=== PATIENT | female | born 1965 | race Caucasian/White ===

== ENCOUNTER 2024-11-05 14:14 | Inpatient (IN) | payer OTHER ==
[~2024-11-05] VITALS: Ht 165.1 cm; Wt 93.4 kg
[2024-11-05 14:56] LABS: CALCIUM 8.9 mg/dL (8.5-10.1); CARBON DIOXIDE 25 mmol/L (21-32); CHLORIDE 88 mmol/L (98-107); CREATININE 1.9 mg/dL (0.6-1.3); GLUCOSE 147 mg/dL (74-106); SODIUM SERUM 133 mmol/L (136-145); UREA NITROGEN, BLOOD 45 mg/dL (7-18)
[2024-11-05] MEDS ORDERED: PANTOPRAZOLE SODIUM 40 MG VIAL ONE (14:56)
[2024-11-05 14:57] LABS: AMMONIA < 10 umol/L (11-32)
[2024-11-05 14:58] LABS: BASOPHILS # (AUTO) 0.1 K/UL (0.0-0.2); LYMPHOCYTES # (AUTO) 0.4 K/uL (0.8-4.8); MONOCYTES # (AUTO) 0.5 K/uL (0.1-1.30); NEUTROPHILS % (AUTO) 88.7 % (38.5-71.5)
[2024-11-05] MEDS: PANTOPRAZOLE SODIUM IV 80 MG in IV DEXTROSE 5% 100 ML IV ONE (14:58)
[2024-11-05] MEDS: IV NORMAL SALINE 1000 ML BAG IV ONE (14:58)
[2024-11-05 15:00] LABS: BASOPHILS % (AUTO) 0.7 % (0.0-2.0); LYMPHOCYTES % (AUTO) 4.5 % (20.5-51.5); MEAN CORPUSCULAR HEMOGLOBIN 34.4 uug (24.7-32.8); MEAN CORPUSCULAR HGB CONC 34 g/dL (32.3-35.6); MEAN CORPUSCULAR VOLUME 100.1 fL (75.5-95.3); MONOCYTES % (AUTO) 6.1 % (0.0-11.0); NEUTROPHILS # (AUTO) 7.4 K/uL (1.8-8.9); PLATELET COUNT (AUTO) 149 K/uL (179-408); RED CELL DISTRIBUTION WIDTH 37.5 % (12.3-17.7); WHITE BLOOD COUNT (AUTO) 8.4 K/uL (3.8-11.8)
[2024-11-05] MEDS ORDERED: ONDANSETRON 4 MG/2 ML VIAL ONE (15:03)
[2024-11-05 15:06] LABS: ALANINE AMINOTRANSFERASE 38 U/L (14-59); ALBUMIN 3.3 g/dL (3.4-5.0); ALKALINE PHOSPHATASE 225 U/L (50-136); ASPARTATE AMINOTRANSFERASE 93 U/L (15-37); BILIRUBIN,DIRECT 5.8 mg/dL (0.0-0.2); BILIRUBIN,TOTAL 9.3 mg/dL (0.2-1.0); TOTAL PROTEIN, SERUM 6.6 g/dL (6.4-8.2)
[2024-11-05] MEDS: ONDANSETRON 4 MG/2 ML VIAL IV ONE (15:06)
[2024-11-05 15:07] LABS: DIFFERENTIAL COMMENT 1; RED BLOOD CELL COUNT(AUTO) 1.67 MIL/uL (3.63-4.92)
[2024-11-05 15:08] LABS: HEMATOCRIT 16.8 % (31.2-41.9); HEMOGLOBIN 5.8 g/dL (10.9-14.3)
[2024-11-05 15:09] LABS: LACTIC ACID 9.1 mmol/L (0.4-2.0)
[2024-11-05] MEDS ORDERED: POTASSIUM CHLORIDE 200 ML ONE (15:32)
[2024-11-05] MEDS ORDERED: PHYTONADIONE 10 MG/1 ML AMPUL ONE (15:32)
[2024-11-05] MEDS ORDERED: LORAZEPAM 2 MG/1 ML VIAL ONE (15:33)
[2024-11-05 15:38] LABS: BAND % (MANUAL) 1 % (0-10); LYMPHOCYTES % (MANUAL) 5 % (20-40); MONOCYTES % (MANUAL) 4 % (2-10); NEUTROPHILS % (MANUAL) 90 % (42-75); PLATELET ESTIMATE SLIGHT DECREASED
[2024-11-05 15:39] LABS: ANISOCYTOSIS 2+; OVALOCYTES 1+
[2024-11-05 16:00] LABS: MAGNESIUM 1.4 mg/dL (1.8-2.4)
[2024-11-05] MEDS: OCTREOTIDE ACETATE INJ 500 MCG in IV DEXTROSE 5% 100 ML IV ONE (16:00)
[2024-11-05] MEDS: OCTREOTIDE ACETATE 50 MCG/1 ML ML IV ONE (16:00)
[2024-11-05] MEDS: LORAZEPAM 2 MG/1 ML VIAL IV ONE (16:01)
[2024-11-05] MEDS: POTASSIUM CHLORIDE 50 ML IV SCH (16:02)
[2024-11-05] MEDS: PHYTONADIONE 10 MG/1 ML AMPUL SQ ONE (16:02)
[2024-11-05] MEDS ORDERED: MAGNESIUM SULFATE/D5W 100 ML ONE (16:22)
[2024-11-05] MEDS ORDERED: OCTREOTIDE ACETATE 50 MCG/1 ML ML ONE (16:23)
[2024-11-05 16:25] LABS: *BILIRUBIN,URIN 1+ (NEGATIVE); *BLOOD, URINE NEGATIVE (NEGATIVE); *CLARITY,URINE CLEAR (CLEAR); *KETONES,URINE 1+ (NEGATIVE); *PROTEIN,URINE NEGATIVE (NEGATIVE); LEUKOCYTE ESTERASE ,URINE NEGATIVE (NEGATIVE); NITRITE, URINE NEGATIVE (NEGATIVE); UGLUCOSE NEGATIVE (NEGATIVE)
[2024-11-05 16:34] LABS: *COLOR,URINE DARK YELLOW (YELLOW)
[2024-11-05 16:55] LABS: BACTERIA,URINE MANY /HPF (NONE SEEN); RBC,URINE NONE SEEN /HPF (0-3); SQUAMOUS EPITHELIAL CELL,UR FEW /HPF (NONE SEEN); WBC,URINE 0-3 /HPF (0-3)
[2024-11-05] MEDS: MAGNESIUM SULFATE/D5W 100 ML IV SCH (17:05)
[2024-11-05] MEDS ORDERED: diphenhydrAMINE 50 MG/1 ML VIAL IV PRN (17:30)
[2024-11-05] MEDS ORDERED: HALOPERIDOL LACTATE 5 MG/1 ML VIAL IV PRN (17:30)
[2024-11-05] MEDS ORDERED: MAGNESIUM SULFATE/D5W 200 ML ONE (17:55)
[2024-11-05] MEDS: IV NORMAL SALINE 500 ML BAG IV ONE (18:06)
[2024-11-05] MEDS ORDERED: PIPERACILLIN SODIUM/TAZOBACTAM 3.375 G in IV DEXTROSE 5% 50 ML IV SCH (18:30)
[2024-11-05] MEDS ORDERED: PANTOPRAZOLE SODIUM 40 MG VIAL IV SCH (18:30)
[2024-11-05] MEDS ORDERED: PHYTONADIONE 10 MG/1 ML AMPUL SQ ONE (18:45)
[2024-11-05 18:56] LABS: *AMPHETAMINE, URINE NEGATIVE (NEGATIVE); *BARBITURATE, URINE NEGATIVE (NEGATIVE); *BENZODIAZEPINE, URINE NEGATIVE (NEGATIVE); *CANNABINOID, URINE NEGATIVE (NEGATIVE); *COCCAINE, URINE NEGATIVE (NEGATIVE); *OPIATE, URINE NEGATIVE (NEGATIVE); *PHENCYCLIDINE SCREEN,URINE NEGATIVE (NEGATIVE); FENTANYL, URINE NEGATIVE (NEGATIVE)
[2024-11-05] MEDS: VANCOMYCIN HCL 1,500 MG in IV DEXTROSE 5% 500 ML IV ONE (19:30)
[2024-11-05] MEDS: POTASSIUM CHLORIDE 20 MEQ in IV D5/ 0.9% NACL 1,000 ML IV PRN (20:59)
[2024-11-05 21:00] VITALS: BP 143/50; TEMP 98.2; O2SAT 98; O2SAT 99
[2024-11-05 21:05] LABS: HEMATOCRIT 16.3 % (31.2-41.9); HEMOGLOBIN 5.6 g/dL (10.9-14.3)
[2024-11-05] MEDS: PIPERACILLIN SODIUM/TAZOBACTAM 3.375 G in IV DEXTROSE 5% 50 ML IV SCH (21:20)
[2024-11-05] MEDS: LORAZEPAM 2 MG/1 ML VIAL IV PRN (21:20)
[2024-11-05] MEDS: PANTOPRAZOLE SODIUM 40 MG VIAL IV SCH (21:49)
[2024-11-05 22:00] VITALS: BP 121/45; O2SAT 100
[2024-11-05] MEDS ORDERED: VANCOMYCIN 1000 MG VIAL ONE (22:39)
[2024-11-05] MEDS ORDERED: VANCOMYCIN HCL 500 MG VIAL ONE (22:40)
[2024-11-05 23:00] VITALS: BP 111/49; O2SAT 98
[2024-11-06] VITALS (70 sets, daily range): BP systolic 81–148; BP diastolic 31–132; TEMP 97.3–98.6; O2SAT 92–100
[2024-11-06] MEDS ORDERED: OCTREOTIDE ACETATE 500 MCG/1 ML VIAL ONE (02:18)
[2024-11-06] MEDS: PHENYLEPHRINE IV 100 MG in IV NORMAL SALINE 240 ML IV PRN (03:07)
[2024-11-06] MEDS: FUROSEMIDE 20 MG/2 ML VIAL IV ONE (03:56)
[2024-11-06 06:38] LABS: BASOPHILS # (AUTO) 0.1 K/UL (0.0-0.2); BASOPHILS % (AUTO) 1.3 % (0.0-2.0); DIFFERENTIAL COMMENT 0; EOSINOPHILS # (AUTO) 0.1 K/uL (0.0-0.7); EOSINOPHILS % (AUTO) 0.6 % (0.0-7.0); HEMATOCRIT 22.5 % (31.2-41.9); HEMOGLOBIN 7.8 g/dL (10.9-14.3); LYMPHOCYTES # (AUTO) 1.3 K/uL (0.8-4.8); MEAN CORPUSCULAR HEMOGLOBIN 33.5 uug (24.7-32.8); MEAN CORPUSCULAR HGB CONC 35 g/dL (32.3-35.6); MEAN CORPUSCULAR VOLUME 96.4 fL (75.5-95.3); MONOCYTES # (AUTO) 0.5 K/uL (0.1-1.30); MONOCYTES % (AUTO) 5.3 % (0.0-11.0); NEUTROPHILS # (AUTO) 8.1 K/uL (1.8-8.9); NEUTROPHILS % (AUTO) 79.8 % (38.5-71.5); PLATELET COUNT (AUTO) 115 K/uL (179-408); RED CELL DISTRIBUTION WIDTH 24.8 % (12.3-17.7); WHITE BLOOD COUNT (AUTO) 10.1 K/uL (3.8-11.8)
[2024-11-06 06:55] LABS: RED BLOOD CELL COUNT(AUTO) 2.33 MIL/uL (3.63-4.92)
[2024-11-06 07:01] LABS: ALBUMIN 2.7 g/dL (3.4-5.0); BILIRUBIN,TOTAL 8.3 mg/dL (0.2-1.0); CREATININE 1.3 mg/dL (0.6-1.3); MAGNESIUM 2.1 mg/dL (1.8-2.4); PHOSPHOROUS 1.6 mg/dL (2.5-4.9); POTASSIUM 2.8 mmol/L (3.5-5.1); TOTAL PROTEIN, SERUM 5.3 g/dL (6.4-8.2)
[2024-11-06 07:05] LABS: THYROID STIMULATING HORMONE 0.671 mIU/mL (0.358-3.740)
[2024-11-06] MEDS: LORAZEPAM 2 MG/1 ML VIAL IV PRN (08:58)
[2024-11-06] MEDS: POTASSIUM PHOSPHATE MM 15 MMOL in IV NORMAL SALINE 250 ML IV ONE (09:53)
[2024-11-06] MEDS ORDERED: MVI ADULT 10 ML VIAL=1 AMP 10 ML, FOLIC ACID 1 MG, THIAMINE HCL INJ 100 MG, MAGNESIUM S... IV PRN (10:15)
[2024-11-06] MEDS ORDERED: PROPOFOL 200 MG/20 ML BOTTLE ONE (10:23)
[2024-11-06] MEDS ORDERED: MIDAZOLAM HCL 2 MG/2 ML VIAL ONE (10:24)
[2024-11-06] MEDS: SUCRALFATE 1 G/10 ML LIQUID UDC GT SCH (11:30)
[2024-11-06] MEDS: MAGNESIUM SULFATE/D5W 100 ML IV SCH (13:12)
[2024-11-06] MEDS: MVI ADULT 10 ML VIAL=1 AMP 10 ML in IV D5/ 0.9% NACL 1,000 ML IV PRN (13:28)
[2024-11-06] MEDS: THIAMINE HCL INJ 100 MG in IV DEXTROSE 5% 50 ML IV SCH (13:30)
[2024-11-06] MEDS: FOLIC ACID 1 MG in IV DEXTROSE 5% 50 ML IV SCH (13:30)
[2024-11-06] MEDS: VANCOMYCIN IV 1,000 MG in IV DEXTROSE 5% 250 ML IV SCH (14:23)
[2024-11-06] MEDS ORDERED: VANCOMYCIN IV 1,000 MG in IV DEXTROSE 5% 250 ML IV SCH (14:30)
[2024-11-06] MEDS: PIPERACILLIN SODIUM/TAZOBACTAM 3.375 G in IV DEXTROSE 5% 100 ML IV SCH (14:34)
[2024-11-06] MEDS: IV D5/ 0.9% NACL 1,000 ML IV PRN (16:11)
[2024-11-06] MEDS ORDERED: LORAZEPAM 2 MG/1 ML VIAL IV ONE (17:30)
[2024-11-06] MEDS ORDERED: diphenhydrAMINE 50 MG/1 ML VIAL IV ONE (17:30)
[2024-11-06] MEDS ORDERED: HALOPERIDOL LACTATE 5 MG/1 ML VIAL IV ONE (17:30)
[2024-11-06] MEDS: PHYTONADIONE 10 MG/1 ML AMPUL SQ ONE (19:13)
[2024-11-07 05:26] LABS: BASOPHILS % (AUTO) 0.7 % (0.0-2.0); EOSINOPHILS # (AUTO) 0.1 K/uL (0.0-0.7); EOSINOPHILS % (AUTO) 2.4 % (0.0-7.0); LYMPHOCYTES # (AUTO) 0.9 K/uL (0.8-4.8); LYMPHOCYTES % (AUTO) 17.8 % (20.5-51.5); MEAN CORPUSCULAR HEMOGLOBIN 34.5 uug (24.7-32.8); MEAN CORPUSCULAR HGB CONC 36 g/dL (32.3-35.6); MEAN CORPUSCULAR VOLUME 95.8 fL (75.5-95.3); MONOCYTES # (AUTO) 0.2 K/uL (0.1-1.30); MONOCYTES % (AUTO) 4.9 % (0.0-11.0); NEUTROPHILS # (AUTO) 3.7 K/uL (1.8-8.9); NEUTROPHILS % (AUTO) 74.2 % (38.5-71.5); PLATELET COUNT (AUTO) 91 K/uL (179-408); RED CELL DISTRIBUTION WIDTH 23.8 % (12.3-17.7); RETICULOCYTE COUNT 1.1 % (0.5-2.2)
[2024-11-07 05:47] LABS: HEMATOCRIT 19.4 % (31.2-41.9); RED BLOOD CELL COUNT(AUTO) 2.03 MIL/uL (3.63-4.92)
[2024-11-07 05:49] LABS: DIFFERENTIAL COMMENT 1
[2024-11-07 06:01] LABS: ALBUMIN 2.4 g/dL (3.4-5.0); BILIRUBIN,TOTAL 10.8 mg/dL (0.2-1.0); CALCIUM 7.9 mg/dL (8.5-10.1); CREATININE 1.1 mg/dL (0.6-1.3); MAGNESIUM 1.5 mg/dL (1.8-2.4); PHOSPHOROUS 2.6 mg/dL (2.5-4.9); TOTAL PROTEIN, SERUM 4.8 g/dL (6.4-8.2)
[2024-11-07 06:13] LABS: *RHEUMATOID FACTOR SCREEN POSITIVE (NEGATIVE)
[2024-11-07 06:16] LABS: C-REACTIVE PROTEIN 1.4 mg/dL (0.00-0.30); POTASSIUM 2.4 mmol/L (3.5-5.1)
[2024-11-07 06:27] LABS: HIV-1 p24 ANTIGEN NON REACTIVE (NONREACTIVE); HIV-1/2 ANTIBODY NON REACTIVE (NONREACTIVE)
[2024-11-07] MEDS ORDERED: POTASSIUM CHLORIDE 50 ML IV SCH (06:30)
[2024-11-07 07:45] VITALS: BP 118/65; TEMP 98.5; O2SAT 95
[2024-11-07 08:09] LABS: NEUTROPHILS % (MANUAL) 74 % (42-75)
[2024-11-07 08:10] LABS: ANISOCYTOSIS 2+; EOSINOPHILS % (MANUAL) 2 % (0-8); LYMPHOCYTES % (MANUAL) 18 % (20-40); MONOCYTES % (MANUAL) 6 % (2-10); PLATELET ESTIMATE DECREASED
[2024-11-07] MEDS: MAGNESIUM SULFATE/D5W 100 ML IV SCH (09:59)
[2024-11-07] MEDS: POTASSIUM CHLORIDE 50 ML IV SCH (11:51)
[2024-11-07 11:59] VITALS: BP 141/50; TEMP 98.3; O2SAT 95
[2024-11-07] MEDS ORDERED: MAGNESIUM SULFATE/D5W 100 ML IV SCH (13:30)
[2024-11-07] MEDS: POTASSIUM PHOSPHATE MM 15 MMOL in IV NORMAL SALINE 250 ML IV ONE (13:48)
[2024-11-07 15:44] VITALS: BP 145/59; TEMP 97.3; TEMP 99.3; O2SAT 96
[2024-11-07 20:45] VITALS: BP 122/68; TEMP 98.3; O2SAT 95
[2024-11-07] MEDS: IV D5/ 0.9% NACL 1,000 ML IV PRN (21:25)
[2024-11-08 06:20] VITALS: BP 114/65; TEMP 98.2; O2SAT 97
[2024-11-08 07:49] VITALS: BP 129/49; TEMP 98.6; O2SAT 98
[2024-11-08 08:03] LABS: ALBUMIN 2.4 g/dL (3.4-5.0); BILIRUBIN,TOTAL 14.4 mg/dL (0.2-1.0); CALCIUM 8.2 mg/dL (8.5-10.1); CREATININE 0.8 mg/dL (0.6-1.3); MAGNESIUM 1.7 mg/dL (1.8-2.4); PHOSPHOROUS 2.2 mg/dL (2.5-4.9); TOTAL PROTEIN, SERUM 4.9 g/dL (6.4-8.2)
[2024-11-08 08:08] LABS: POTASSIUM 3.7 mmol/L (3.5-5.1)
[2024-11-08 08:14] LABS: BASOPHILS # (AUTO) 0.1 K/UL (0.0-0.2); BASOPHILS % (AUTO) 1.3 % (0.0-2.0); DIFFERENTIAL COMMENT 0; EOSINOPHILS # (AUTO) 0.3 K/uL (0.0-0.7); EOSINOPHILS % (AUTO) 4.2 % (0.0-7.0); HEMATOCRIT 21.7 % (31.2-41.9); HEMOGLOBIN 7.6 g/dL (10.9-14.3); LYMPHOCYTES # (AUTO) 1.3 K/uL (0.8-4.8); LYMPHOCYTES % (AUTO) 21.4 % (20.5-51.5); MEAN CORPUSCULAR HEMOGLOBIN 34.6 uug (24.7-32.8); MEAN CORPUSCULAR HGB CONC 35 g/dL (32.3-35.6); MEAN CORPUSCULAR VOLUME 98.5 fL (75.5-95.3); MONOCYTES # (AUTO) 0.6 K/uL (0.1-1.30); MONOCYTES % (AUTO) 9.1 % (0.0-11.0); NEUTROPHILS # (AUTO) 3.9 K/uL (1.8-8.9); PLATELET COUNT (AUTO) 52 K/uL (179-408); RED CELL DISTRIBUTION WIDTH 24.2 % (12.3-17.7); WHITE BLOOD COUNT (AUTO) 6.1 K/uL (3.8-11.8)
[2024-11-08 08:17] LABS: RED BLOOD CELL COUNT(AUTO) 2.21 MIL/uL (3.63-4.92)
[2024-11-08 08:18] LABS: NEUTROPHILS % (MANUAL) 0 % (42-75)
[2024-11-08 08:19] LABS: LYMPHOCYTES % (MANUAL) 0 % (20-40)
[2024-11-08] MEDS: MULTIVITAMINS,THERAPEUTIC TABLET PO SCH (09:22)
[2024-11-08] MEDS: SUCRALFATE 1 G TABLET PO SCH (09:38)
[2024-11-08 10:06] LABS: *IMMUNOGLOBULIN G, SERUM 860 mg/dL (586-1602); HEPATITIS B SURFACE AB, QUAL Non Reactive (.); HEPATITIS B SURFACE AG Negative (Negative); HEPATITIS C VIRUS ANTIBODY Non Reactive (Non Reactive); IMMUNOGLOBULIN A, SERUM 145 mg/dL (87-352); IMMUNOGLOBULIN M, SERUM 117 mg/dL (26-217)
[2024-11-08] MEDS: MAGNESIUM SULFATE/D5W 100 ML IV SCH (11:35)
[2024-11-08 11:47] VITALS: BP 143/53; TEMP 98.8; O2SAT 98
[2024-11-08 12:06] LABS: A/G RATIO 1.4 (0.7-1.7); ALBUMIN 2.6 g/dL (2.9-4.4); ALPHA-1-GLOBULIN 0.2 g/dL (0.0-0.4); ALPHA-2-GLOBULIN 0.3 g/dL (0.4-1.0); BETA GLOBULIN 0.6 g/dL (0.7-1.3); GAMMA GLOBULIN 0.7 g/dL (0.4-1.8); GLOBULIN, TOTAL 1.9 g/dL (2.2-3.9); M-SPIKE Not Observed g/dL (Not Observed); PROTEIN, TOTAL 4.5 g/dL (6.0-8.5)
[2024-11-08] MEDS: CEFTRIAXONE 1 G in IV DEXTROSE 5% 50 ML IV SCH (13:30)
[2024-11-08] MEDS: METRONIDAZOLE 500 MG/NS 100ML 500 MG in PREMIXED 1 EACH IV SCH (13:47)
[2024-11-08 14:11] LABS: *ANTI-SCLERODERMA-70 AB <0.2 AI (0.0-0.9); *RNP ANTIBODIES <0.2 AI (0.0-0.9); *SJOGREN'S ANTI-SS-A <0.2 AI (0.0-0.9); *SJOGREN'S ANTI-SS-B <0.2 AI (0.0-0.9); *SMITH ANTIBODIES <0.2 AI (0.0-0.9); ANTI-DNA(DS) AB, QN <1 IU/mL (0-9); ANTI-NUCLEAR AB DIRECT Negative (Negative)
[2024-11-08 15:30] VITALS: BP 150/75; TEMP 98.3; O2SAT 97
[2024-11-08] MEDS: NEUTRA PHOS PACKET PO ONE (16:17)
[2024-11-08 19:30] VITALS: BP 149/64; TEMP 98.8; O2SAT 97
[2024-11-09] VITALS (7 sets, daily range): BP systolic 108–143; BP diastolic 55–82; TEMP 97.2–98.8; O2SAT 95–98
[2024-11-09 01:06] LABS: FOLATE (FOLIC ACID), SERUM 2.7 ng/mL (>3.0)
[2024-11-09 06:40] LABS: BASOPHILS # (AUTO) 0.1 K/UL (0.0-0.2); BASOPHILS % (AUTO) 0.8 % (0.0-2.0); EOSINOPHILS # (AUTO) 0.2 K/uL (0.0-0.7); EOSINOPHILS % (AUTO) 3.3 % (0.0-7.0); HEMATOCRIT 21.1 % (31.2-41.9); HEMOGLOBIN 7.5 g/dL (10.9-14.3); LYMPHOCYTES # (AUTO) 1.2 K/uL (0.8-4.8); MEAN CORPUSCULAR HEMOGLOBIN 35.4 uug (24.7-32.8); MEAN CORPUSCULAR HGB CONC 36 g/dL (32.3-35.6); MEAN CORPUSCULAR VOLUME 99.1 fL (75.5-95.3); MONOCYTES # (AUTO) 0.7 K/uL (0.1-1.30); MONOCYTES % (AUTO) 9.5 % (0.0-11.0); NEUTROPHILS # (AUTO) 5.2 K/uL (1.8-8.9); NEUTROPHILS % (AUTO) 70.4 % (38.5-71.5); PLATELET COUNT (AUTO) 126 K/uL (179-408); WHITE BLOOD COUNT (AUTO) 7.4 K/uL (3.8-11.8)
[2024-11-09 07:11] LABS: DIFFERENTIAL COMMENT 1; RED BLOOD CELL COUNT(AUTO) 2.13 MIL/uL (3.63-4.92)
[2024-11-09 07:13] LABS: CALCIUM 8.3 mg/dL (8.5-10.1); CREATININE 0.7 mg/dL (0.6-1.3); MAGNESIUM 1.4 mg/dL (1.8-2.4); PHOSPHOROUS 4.1 mg/dL (2.5-4.9)
[2024-11-09 07:24] LABS: POTASSIUM 2.6 mmol/L (3.5-5.1)
[2024-11-09] MEDS: MAGNESIUM SULFATE/D5W 100 ML IV SCH (10:15)
[2024-11-09] MEDS: POTASSIUM CHLORIDE 20 MEQ TAB.PRT.SR PO ONE (10:16)
[2024-11-09 10:32] LABS: LYMPHOCYTES % (MANUAL) 16 % (20-40); MONOCYTES % (MANUAL) 10 % (2-10); NEUTROPHILS % (MANUAL) 70 % (42-75)
[2024-11-09 10:33] LABS: ANISOCYTOSIS 3+; BASOPHILS % (MANUAL) 1 % (0-2); EOSINOPHILS % (MANUAL) 3 % (0-8); PLATELET ESTIMATE DECREASED
[2024-11-09] MEDS: THIAMINE HCL 100 MG TABLET PO SCH (14:49)
[2024-11-09] MEDS: FOLIC ACID 1 MG TABLET PO SCH (14:49)
[2024-11-10] VITALS (7 sets, daily range): BP systolic 102–133; BP diastolic 67–81; TEMP 97.6–98.8; O2SAT 87–97
[2024-11-10 07:04] LABS: BASOPHILS # (AUTO) 0.1 K/UL (0.0-0.2); BASOPHILS % (AUTO) 0.8 % (0.0-2.0); EOSINOPHILS # (AUTO) 0.2 K/uL (0.0-0.7); EOSINOPHILS % (AUTO) 3.5 % (0.0-7.0); HEMATOCRIT 21.6 % (31.2-41.9); HEMOGLOBIN 7.6 g/dL (10.9-14.3); LYMPHOCYTES # (AUTO) 0.9 K/uL (0.8-4.8); MEAN CORPUSCULAR HEMOGLOBIN 35.5 uug (24.7-32.8); MEAN CORPUSCULAR HGB CONC 35 g/dL (32.3-35.6); MONOCYTES # (AUTO) 0.8 K/uL (0.1-1.30); MONOCYTES % (AUTO) 12.5 % (0.0-11.0); NEUTROPHILS # (AUTO) 4.6 K/uL (1.8-8.9); NEUTROPHILS % (AUTO) 69.2 % (38.5-71.5); PLATELET COUNT (AUTO) 117 K/uL (179-408); WHITE BLOOD COUNT (AUTO) 6.7 K/uL (3.8-11.8)
[2024-11-10 07:20] LABS: CALCIUM 8.5 mg/dL (8.5-10.1); CREATININE 0.7 mg/dL (0.6-1.3); PHOSPHOROUS 3.4 mg/dL (2.5-4.9)
[2024-11-10 07:36] LABS: DIFFERENTIAL COMMENT 1; RED BLOOD CELL COUNT(AUTO) 2.14 MIL/uL (3.63-4.92)
[2024-11-10] MEDS: POTASSIUM CHLORIDE 10 MEQ TAB.PRT.SR PO SCH (12:08)
[2024-11-10 13:33] LABS: EOSINOPHILS % (MANUAL) 4 % (0-8); LYMPHOCYTES % (MANUAL) 16 % (20-40); MONOCYTES % (MANUAL) 8 % (2-10); NEUTROPHILS % (MANUAL) 72 % (42-75)
[2024-11-10 13:34] LABS: ANISOCYTOSIS 2+; PLATELET ESTIMATE DECREASED
[2024-11-10 13:35] LABS: OVALOCYTES 1+
[2024-11-10] MEDS ORDERED: IOHEXOL 300MG/ML 100 ML INFUS..BTL ONE (17:59)
[2024-11-10] MEDS ORDERED: SWABABLE VALVE TRANSFER SET EA MC ONE (17:59)
[2024-11-10] MEDS ORDERED: IV NORMAL SALINE 250 ML IV ONE (17:59)
[2024-11-10 18:54] LABS: *BILIRUBIN,URIN 3+ (NEGATIVE); *BLOOD, URINE 3+ (NEGATIVE); *CLARITY,URINE CLOUDY (CLEAR); *COLOR,URINE AMBER (YELLOW); *KETONES,URINE 1+ (NEGATIVE); *PROTEIN,URINE 3+ (NEGATIVE); LEUKOCYTE ESTERASE ,URINE 3+ (NEGATIVE); NITRITE, URINE NEGATIVE (NEGATIVE); PH,URINE 5.5 (5.0-8.0); UGLUCOSE TRACE (NEGATIVE)
[2024-11-10 19:03] LABS: RBC,URINE 80-100 /HPF (0-3)
[2024-11-10 19:04] LABS: BACTERIA,URINE FEW /HPF (NONE SEEN)
[2024-11-10 19:05] LABS: SQUAMOUS EPITHELIAL CELL,UR FEW /HPF (NONE SEEN)
[2024-11-11 02:17] VITALS: O2SAT 99
[2024-11-11 07:14] LABS: BASOPHILS # (AUTO) 0.1 K/UL (0.0-0.2); BASOPHILS % (AUTO) 1.5 % (0.0-2.0); EOSINOPHILS # (AUTO) 0.2 K/uL (0.0-0.7); EOSINOPHILS % (AUTO) 3.7 % (0.0-7.0); LYMPHOCYTES # (AUTO) 1.1 K/uL (0.8-4.8); LYMPHOCYTES % (AUTO) 18.9 % (20.5-51.5); MEAN CORPUSCULAR HEMOGLOBIN 36.2 uug (24.7-32.8); MEAN CORPUSCULAR HGB CONC 35 g/dL (32.3-35.6); MEAN CORPUSCULAR VOLUME 103.2 fL (75.5-95.3); MONOCYTES # (AUTO) 0.7 K/uL (0.1-1.30); MONOCYTES % (AUTO) 12.8 % (0.0-11.0); NEUTROPHILS # (AUTO) 3.6 K/uL (1.8-8.9); NEUTROPHILS % (AUTO) 63.1 % (38.5-71.5); PLATELET COUNT (AUTO) 123 K/uL (179-408); RED CELL DISTRIBUTION WIDTH 26.2 % (12.3-17.7); WHITE BLOOD COUNT (AUTO) 5.7 K/uL (3.8-11.8)
[2024-11-11 07:22] LABS: DIFFERENTIAL COMMENT 1; HEMATOCRIT 20.6 % (31.2-41.9); HEMOGLOBIN 7.2 g/dL (10.9-14.3); RED BLOOD CELL COUNT(AUTO) 1.99 MIL/uL (3.63-4.92)
[2024-11-11 07:35] LABS: CALCIUM 8.2 mg/dL (8.5-10.1); CREATININE 0.7 mg/dL (0.6-1.3); MAGNESIUM 1.6 mg/dL (1.8-2.4); PHOSPHOROUS 3.1 mg/dL (2.5-4.9); POTASSIUM 3.3 mmol/L (3.5-5.1)
[2024-11-11 07:41] VITALS: BP 113/62; TEMP 98.5; O2SAT 98
[2024-11-11] MEDS: POTASSIUM CHLORIDE 20 MEQ TAB.PRT.SR PO ONE (10:31)
[2024-11-11] MEDS: MAGNESIUM OXIDE 400 MG TABLET PO ONE (10:31)
[2024-11-11 12:00] VITALS: O2SAT 98
[2024-11-11] MEDS: risperiDONE-M 0.5 MG TAB.RAPDIS PO SCH (12:17)
[2024-11-11] MEDS: LACTULOSE 20 G/30 ML LIQUID UDC PO SCH (12:17)
[2024-11-11] MEDS: GABAPENTIN 100 MG CAPSULE PO SCH ×2 (13:39→20:47)
[2024-11-11] MEDS: METRONIDAZOLE 500 MG TABLET PO SCH (15:21)
[2024-11-11 16:19] VITALS: BP 107/71; TEMP 98.1; O2SAT 96
[2024-11-11] MEDS: PHYTONADIONE 10 MG/1 ML AMPUL SQ ONE (16:48)
[2024-11-11] MEDS: ENSURE ENLIVE (VAN) 240 ML LIQUID PO SCH (17:16)
[2024-11-11 19:52] VITALS: BP 141/60; TEMP 98; O2SAT 91
[2024-11-11] MEDS: ACETAMINOPHEN 650 MG SUPP.RECT RC PRN (21:03)
[2024-11-12] VITALS (8 sets, daily range): BP systolic 117–156; BP diastolic 60–75; TEMP 98–99.1; O2SAT 97–99
[2024-11-12 07:48] LABS: BASOPHILS # (AUTO) 0.1 K/UL (0.0-0.2); EOSINOPHILS # (AUTO) 0.1 K/uL (0.0-0.7); EOSINOPHILS % (AUTO) 2.9 % (0.0-7.0); HEMATOCRIT 22.3 % (31.2-41.9); HEMOGLOBIN 7.6 g/dL (10.9-14.3); LYMPHOCYTES # (AUTO) 0.7 K/uL (0.8-4.8); LYMPHOCYTES % (AUTO) 15.7 % (20.5-51.5); MEAN CORPUSCULAR HEMOGLOBIN 35.7 uug (24.7-32.8); MEAN CORPUSCULAR HGB CONC 34 g/dL (32.3-35.6); MEAN CORPUSCULAR VOLUME 104.3 fL (75.5-95.3); MONOCYTES # (AUTO) 0.7 K/uL (0.1-1.30); MONOCYTES % (AUTO) 14.7 % (0.0-11.0); NEUTROPHILS # (AUTO) 3.1 K/uL (1.8-8.9); NEUTROPHILS % (AUTO) 64.7 % (38.5-71.5); PLATELET COUNT (AUTO) 144 K/uL (179-408); RED CELL DISTRIBUTION WIDTH 23.8 % (12.3-17.7); WHITE BLOOD COUNT (AUTO) 4.7 K/uL (3.8-11.8)
[2024-11-12 08:05] LABS: DIFFERENTIAL COMMENT 1; RED BLOOD CELL COUNT(AUTO) 2.14 MIL/uL (3.63-4.92)
[2024-11-12 08:17] LABS: ALBUMIN 2.3 g/dL (3.4-5.0); BILIRUBIN,DIRECT 21.5 mg/dL (0.0-0.2); CALCIUM 8.6 mg/dL (8.5-10.1); CREATININE 0.7 mg/dL (0.6-1.3); MAGNESIUM 1.5 mg/dL (1.8-2.4); POTASSIUM 3.2 mmol/L (3.5-5.1); TOTAL PROTEIN, SERUM 4.6 g/dL (6.4-8.2)
[2024-11-12 09:59] LABS: BASOPHILS % (MANUAL) 1 % (0-2); EOSINOPHILS % (MANUAL) 3 % (0-8); LYMPHOCYTES % (MANUAL) 16 % (20-40); MONOCYTES % (MANUAL) 15 % (2-10); NEUTROPHILS % (MANUAL) 65 % (42-75); PLATELET ESTIMATE DECREASED
[2024-11-12 10:00] LABS: ANISOCYTOSIS 2+
[2024-11-12] MEDS: POTASSIUM CHLORIDE 20 MEQ TAB.PRT.SR PO ONE (10:55)
[2024-11-12] MEDS: MAGNESIUM OXIDE 400 MG TABLET PO ONE (10:56)
[2024-11-12] MEDS ORDERED: AZITHROMYCIN IV 500 MG in IV DEXTROSE 5% 250 ML IV SCH (14:00)
[2024-11-12] MEDS: IV D5/ 0.9% NACL 1,000 ML IV SCH (16:29)
[2024-11-12 18:08] LABS: *BILIRUBIN,URIN 3+ (NEGATIVE); *BLOOD, URINE 3+ (NEGATIVE); *KETONES,URINE 1+ (NEGATIVE); *PROTEIN,URINE 3+ (NEGATIVE); LEUKOCYTE ESTERASE ,URINE 3+ (NEGATIVE); NITRITE, URINE POSITIVE (NEGATIVE); PH,URINE 5.5 (5.0-8.0); UGLUCOSE TRACE (NEGATIVE)
[2024-11-12 18:17] LABS: *CLARITY,URINE CLOUDY (CLEAR); *COLOR,URINE BROWN (YELLOW)
[2024-11-12 18:21] LABS: *CREATININE,URINE 287.5 mg/dL (30-125); *URINE TOTAL PROTEIN RANDOM 164.6 mg/dL (<150/24HR)
[2024-11-12 18:31] LABS: RBC,URINE 50-80 /HPF (0-3)
[2024-11-12 18:33] LABS: BACTERIA,URINE MODERATE /HPF (NONE SEEN)
[2024-11-12 18:34] LABS: YEAST,URINE FEW /HPF (NONE SEEN)
[2024-11-12 18:35] LABS: SQUAMOUS EPITHELIAL CELL,UR FEW /HPF (NONE SEEN)
[2024-11-12] MEDS ORDERED: DOXYCYCLINE HYCLATE 100 MG INJ IV ONE (21:43)
[2024-11-12] MEDS: DOXYCYCLINE HYCLATE IV 100 MG in IV DEXTROSE 5% 100 ML IV SCH (22:02)
[2024-11-13] VITALS (9 sets, daily range): BP systolic 110–132; BP diastolic 69–79; TEMP 98.1–101.2; O2SAT 94–99
[2024-11-13 05:23] LABS: BASOPHILS # (AUTO) 0.1 K/UL (0.0-0.2); BASOPHILS % (AUTO) 0.8 % (0.0-2.0); EOSINOPHILS # (AUTO) 0.2 K/uL (0.0-0.7); EOSINOPHILS % (AUTO) 3.5 % (0.0-7.0); HEMATOCRIT 23.7 % (31.2-41.9); LYMPHOCYTES # (AUTO) 1.6 K/uL (0.8-4.8); LYMPHOCYTES % (AUTO) 24.7 % (20.5-51.5); MEAN CORPUSCULAR HEMOGLOBIN 35.5 uug (24.7-32.8); MEAN CORPUSCULAR HGB CONC 34 g/dL (32.3-35.6); MEAN CORPUSCULAR VOLUME 105.9 fL (75.5-95.3); MONOCYTES # (AUTO) 0.9 K/uL (0.1-1.30); MONOCYTES % (AUTO) 14.3 % (0.0-11.0); NEUTROPHILS # (AUTO) 3.6 K/uL (1.8-8.9); NEUTROPHILS % (AUTO) 56.7 % (38.5-71.5); PLATELET COUNT (AUTO) 178 K/uL (179-408); RED CELL DISTRIBUTION WIDTH 23.2 % (12.3-17.7); WHITE BLOOD COUNT (AUTO) 6.3 K/uL (3.8-11.8)
[2024-11-13 05:27] LABS: DIFFERENTIAL COMMENT 1; RED BLOOD CELL COUNT(AUTO) 2.24 MIL/uL (3.63-4.92)
[2024-11-13 05:45] LABS: CALCIUM 8.3 mg/dL (8.5-10.1); CREATININE 0.7 mg/dL (0.6-1.3); MAGNESIUM 1.4 mg/dL (1.8-2.4); PHOSPHOROUS 2.8 mg/dL (2.5-4.9); POTASSIUM 3.4 mmol/L (3.5-5.1)
[2024-11-13] MEDS: POTASSIUM CHLORIDE 20 MEQ TAB.PRT.SR PO ONE (11:26)
[2024-11-13] MEDS: MAGNESIUM OXIDE 400 MG TABLET PO SCH (11:26)
[2024-11-13] MEDS: LACTULOSE 20 G/30 ML LIQUID UDC PO SCH (13:37)
[2024-11-13] MEDS ORDERED: IV NORMAL SALINE 1000 ML BAG IV ONE (23:15)
[2024-11-13 23:28] LABS: ABG BASE EXCESS -7.1 mmol/L (-2.0-3.0); ABG HCO3 15.7 mmol/L (21.0-28.0); ABG PCO2 22.8 mmHg (32.0-45.0); ABG PH 7.457 (7.350-7.450); ABG PO2 98.9 mmHg (83.0-108.0); ABG SITE LEFT RADIAL; ABG TOTAL HEMOGLOBIN 7.8 G/dL (12.0-16.0); AaDO2 97.9 mmHg; COHb 2.6 % (0.5-1.5); MetHb 0.2 % (0.0-1.5); O2Hb 95.3 % (94.0-98.0)
[2024-11-13 23:36] LABS: BASOPHILS # (AUTO) 0.3 K/UL (0.0-0.2); BASOPHILS % (AUTO) 3.9 % (0.0-2.0); EOSINOPHILS # (AUTO) 0.2 K/uL (0.0-0.7); EOSINOPHILS % (AUTO) 2.4 % (0.0-7.0); HEMATOCRIT 22.6 % (31.2-41.9); HEMOGLOBIN 7.6 g/dL (10.9-14.3); LYMPHOCYTES # (AUTO) 1.2 K/uL (0.8-4.8); LYMPHOCYTES % (AUTO) 16.7 % (20.5-51.5); MEAN CORPUSCULAR HEMOGLOBIN 35.1 uug (24.7-32.8); MEAN CORPUSCULAR HGB CONC 34 g/dL (32.3-35.6); MEAN CORPUSCULAR VOLUME 104.3 fL (75.5-95.3); NEUTROPHILS # (AUTO) 4.6 K/uL (1.8-8.9); PLATELET COUNT (AUTO) 223 K/uL (179-408); RED CELL DISTRIBUTION WIDTH 23.1 % (12.3-17.7); WHITE BLOOD COUNT (AUTO) 7.4 K/uL (3.8-11.8)
[2024-11-13 23:40] LABS: DIFFERENTIAL COMMENT 1; RED BLOOD CELL COUNT(AUTO) 2.16 MIL/uL (3.63-4.92)
[2024-11-13 23:54] LABS: CALCIUM 8.5 mg/dL (8.5-10.1); CREATININE 0.9 mg/dL (0.6-1.3); POTASSIUM 3.4 mmol/L (3.5-5.1)
[2024-11-14] VITALS (36 sets, daily range): BP systolic 92–146; BP diastolic 53–104; TEMP 97.6–98.8; O2SAT 92–100
[2024-11-14 00:11] LABS: ALBUMIN 2.2 g/dL (3.4-5.0); TOTAL PROTEIN, SERUM 4.5 g/dL (6.4-8.2)
[2024-11-14 00:32] LABS: BILIRUBIN,TOTAL 26.8 mg/dL (0.2-1.0)
[2024-11-14 05:09] LABS: BASOPHILS # (AUTO) 0.1 K/UL (0.0-0.2); BASOPHILS % (AUTO) 1.9 % (0.0-2.0); EOSINOPHILS # (AUTO) 0.1 K/uL (0.0-0.7); EOSINOPHILS % (AUTO) 1.8 % (0.0-7.0); HEMATOCRIT 23.5 % (31.2-41.9); LYMPHOCYTES # (AUTO) 1.4 K/uL (0.8-4.8); LYMPHOCYTES % (AUTO) 17.3 % (20.5-51.5); MEAN CORPUSCULAR HEMOGLOBIN 35.5 uug (24.7-32.8); MEAN CORPUSCULAR HGB CONC 34 g/dL (32.3-35.6); MEAN CORPUSCULAR VOLUME 104.8 fL (75.5-95.3); MONOCYTES # (AUTO) 1.1 K/uL (0.1-1.30); MONOCYTES % (AUTO) 14.4 % (0.0-11.0); NEUTROPHILS # (AUTO) 5.1 K/uL (1.8-8.9); NEUTROPHILS % (AUTO) 64.6 % (38.5-71.5); PLATELET COUNT (AUTO) 245 K/uL (179-408); RED CELL DISTRIBUTION WIDTH 22.6 % (12.3-17.7); WHITE BLOOD COUNT (AUTO) 7.9 K/uL (3.8-11.8)
[2024-11-14 05:15] LABS: DIFFERENTIAL COMMENT 1; RED BLOOD CELL COUNT(AUTO) 2.24 MIL/uL (3.63-4.92)
[2024-11-14 05:30] LABS: CALCIUM 8.5 mg/dL (8.5-10.1); CREATININE 0.9 mg/dL (0.6-1.3); MAGNESIUM 1.4 mg/dL (1.8-2.4); PHOSPHOROUS 2.8 mg/dL (2.5-4.9); POTASSIUM 3.6 mmol/L (3.5-5.1)
[2024-11-14] MEDS: LACTULOSE 20 G/30 ML LIQUID UDC NG SCH (08:23)
[2024-11-14] MEDS: MAGNESIUM SULFATE/D5W 100 ML IV SCH (12:15)
[2024-11-14] MEDS: IV D5W 1000ML 1,000 ML IV PRN (12:53)
[2024-11-14] MEDS: METOPROLOL TARTRATE 25 MG TABLET PO SCH (13:08)
[2024-11-15] VITALS (25 sets, daily range): BP systolic 74–113; BP diastolic 46–77; TEMP 98.1–99.5; O2SAT 70–99
[2024-11-15 05:08] LABS: EOSINOPHILS % (AUTO) 2.8 % (0.0-7.0); HEMATOCRIT 24.3 % (31.2-41.9); HEMOGLOBIN 8.1 g/dL (10.9-14.3); LYMPHOCYTES % (AUTO) 17.7 % (20.5-51.5); MEAN CORPUSCULAR HEMOGLOBIN 34.7 uug (24.7-32.8); MEAN CORPUSCULAR HGB CONC 33 g/dL (32.3-35.6); MONOCYTES % (AUTO) 11.9 % (0.0-11.0); NEUTROPHILS % (AUTO) 65.6 % (38.5-71.5); PLATELET COUNT (AUTO) 260 K/uL (179-408); RED CELL DISTRIBUTION WIDTH 22.3 % (12.3-17.7); WHITE BLOOD COUNT (AUTO) 8.3 K/uL (3.8-11.8)
[2024-11-15 05:09] LABS: BASOPHILS # (AUTO) 0.2 K/UL (0.0-0.2); EOSINOPHILS # (AUTO) 0.2 K/uL (0.0-0.7); LYMPHOCYTES # (AUTO) 1.5 K/uL (0.8-4.8); NEUTROPHILS # (AUTO) 5.4 K/uL (1.8-8.9)
[2024-11-15 05:20] LABS: DIFFERENTIAL COMMENT 1; RED BLOOD CELL COUNT(AUTO) 2.32 MIL/uL (3.63-4.92)
[2024-11-15 05:39] LABS: CALCIUM 8.4 mg/dL (8.5-10.1); PHOSPHOROUS 2.8 mg/dL (2.5-4.9); POTASSIUM 2.9 mmol/L (3.5-5.1)
[2024-11-15] MEDS: IV NORMAL SALINE 250 ML IV ONE (07:21)
[2024-11-15] MEDS: POTASSIUM CHLORIDE 20 MEQ POWDER PACKET GT ONE (07:58)
[2024-11-15] MEDS: POTASSIUM CHLORIDE 50 ML IV SCH (07:58)
[2024-11-15] MEDS: REMEDY ESSENTIAL ZINC PASTE 113 GM TOP SCH (08:51)
[2024-11-15] MEDS: IV NORMAL SALINE 500 ML IV ONE (10:33)
[2024-11-15] MEDS: FLUCONAZOLE 200 MG/NS 100ML IV 200 MG in PREMIXED 1 EACH IV ONE (14:24)
[2024-11-16] VITALS (26 sets, daily range): BP systolic 96–123; BP diastolic 53–81; TEMP 98.2–99.5; O2SAT 95–99
[2024-11-16 05:09] LABS: BASOPHILS # (AUTO) 0.2 K/UL (0.0-0.2); BASOPHILS % (AUTO) 1.6 % (0.0-2.0); EOSINOPHILS # (AUTO) 0.2 K/uL (0.0-0.7); EOSINOPHILS % (AUTO) 1.5 % (0.0-7.0); HEMATOCRIT 24.5 % (31.2-41.9); HEMOGLOBIN 8.2 g/dL (10.9-14.3); LYMPHOCYTES # (AUTO) 1.9 K/uL (0.8-4.8); LYMPHOCYTES % (AUTO) 17.1 % (20.5-51.5); MEAN CORPUSCULAR HEMOGLOBIN 34.8 uug (24.7-32.8); MEAN CORPUSCULAR HGB CONC 33 g/dL (32.3-35.6); MEAN CORPUSCULAR VOLUME 104.1 fL (75.5-95.3); MONOCYTES # (AUTO) 1.1 K/uL (0.1-1.30); MONOCYTES % (AUTO) 10.1 % (0.0-11.0); NEUTROPHILS # (AUTO) 7.6 K/uL (1.8-8.9); NEUTROPHILS % (AUTO) 69.7 % (38.5-71.5); PLATELET COUNT (AUTO) 310 K/uL (179-408); WHITE BLOOD COUNT (AUTO) 10.9 K/uL (3.8-11.8)
[2024-11-16 05:29] LABS: DIFFERENTIAL COMMENT 1; RED BLOOD CELL COUNT(AUTO) 2.35 MIL/uL (3.63-4.92)
[2024-11-16 05:37] LABS: ALBUMIN 1.9 g/dL (3.4-5.0); CALCIUM 8.5 mg/dL (8.5-10.1); CREATININE 1.1 mg/dL (0.6-1.3); MAGNESIUM 1.9 mg/dL (1.8-2.4); PHOSPHOROUS 3.4 mg/dL (2.5-4.9); POTASSIUM 3.5 mmol/L (3.5-5.1); TOTAL PROTEIN, SERUM 4.7 g/dL (6.4-8.2)
[2024-11-16 13:43] LABS: THYROID STIMULATING HORMONE 5.083 mIU/mL (0.358-3.740)
[2024-11-16 17:48] LABS: BASOPHILS # (AUTO) 0.1 K/UL (0.0-0.2); BASOPHILS % (AUTO) 1.3 % (0.0-2.0); EOSINOPHILS # (AUTO) 0.2 K/uL (0.0-0.7); EOSINOPHILS % (AUTO) 1.5 % (0.0-7.0); HEMATOCRIT 24.6 % (31.2-41.9); HEMOGLOBIN 8.1 g/dL (10.9-14.3); LYMPHOCYTES # (AUTO) 1.7 K/uL (0.8-4.8); LYMPHOCYTES % (AUTO) 15.9 % (20.5-51.5); MEAN CORPUSCULAR HEMOGLOBIN 34.5 uug (24.7-32.8); MEAN CORPUSCULAR HGB CONC 33 g/dL (32.3-35.6); MEAN CORPUSCULAR VOLUME 105.1 fL (75.5-95.3); MONOCYTES # (AUTO) 1.1 K/uL (0.1-1.30); MONOCYTES % (AUTO) 10.6 % (0.0-11.0); NEUTROPHILS # (AUTO) 7.4 K/uL (1.8-8.9); NEUTROPHILS % (AUTO) 70.7 % (38.5-71.5); PLATELET COUNT (AUTO) 282 K/uL (179-408); RED CELL DISTRIBUTION WIDTH 21.4 % (12.3-17.7); WHITE BLOOD COUNT (AUTO) 10.5 K/uL (3.8-11.8)
[2024-11-16 17:56] LABS: DIFFERENTIAL COMMENT 1; RED BLOOD CELL COUNT(AUTO) 2.34 MIL/uL (3.63-4.92)
[2024-11-16] MEDS: METOPROLOL TARTRATE 25 MG TABLET PO ONE (23:03)
[2024-11-17] VITALS (24 sets, daily range): BP systolic 90–112; BP diastolic 51–72; TEMP 98.2–101.6; O2SAT 92–100
[2024-11-17 05:09] LABS: BASOPHILS # (AUTO) 0.2 K/UL (0.0-0.2); BASOPHILS % (AUTO) 1.8 % (0.0-2.0); EOSINOPHILS # (AUTO) 0.2 K/uL (0.0-0.7); EOSINOPHILS % (AUTO) 1.5 % (0.0-7.0); HEMOGLOBIN 8.1 g/dL (10.9-14.3); LYMPHOCYTES # (AUTO) 1.7 K/uL (0.8-4.8); LYMPHOCYTES % (AUTO) 14.2 % (20.5-51.5); MEAN CORPUSCULAR HEMOGLOBIN 33.7 uug (24.7-32.8); MEAN CORPUSCULAR HGB CONC 32 g/dL (32.3-35.6); MEAN CORPUSCULAR VOLUME 104.2 fL (75.5-95.3); MONOCYTES # (AUTO) 1.2 K/uL (0.1-1.30); MONOCYTES % (AUTO) 9.6 % (0.0-11.0); NEUTROPHILS % (AUTO) 72.9 % (38.5-71.5); PLATELET COUNT (AUTO) 326 K/uL (179-408); RED CELL DISTRIBUTION WIDTH 21.9 % (12.3-17.7); WHITE BLOOD COUNT (AUTO) 12.3 K/uL (3.8-11.8)
[2024-11-17 05:16] LABS: DIFFERENTIAL COMMENT 1
[2024-11-17] MEDS ORDERED: FLUCONAZOLE 200 MG/NS 100ML IV 100 MG in PREMIXED 1 EACH IV SCH (11:30)
[2024-11-17] MEDS: FLUCONAZOLE 200 MG/NS 100ML IV 200 MG in PREMIXED 1 EACH IV SCH (12:23)
[2024-11-17] MEDS: LACTULOSE 20 G/30 ML LIQUID UDC PO SCH (17:00)
[2024-11-18] VITALS: BP 104/63; TEMP 98.7; O2SAT 96
[2024-11-18 05:06] LABS: BASOPHILS # (AUTO) 0.1 K/UL (0.0-0.2); BASOPHILS % (AUTO) 1.1 % (0.0-2.0); EOSINOPHILS # (AUTO) 0.2 K/uL (0.0-0.7); EOSINOPHILS % (AUTO) 1.2 % (0.0-7.0); HEMATOCRIT 24.8 % (31.2-41.9); LYMPHOCYTES # (AUTO) 1.7 K/uL (0.8-4.8); LYMPHOCYTES % (AUTO) 12.8 % (20.5-51.5); MEAN CORPUSCULAR HEMOGLOBIN 33.8 uug (24.7-32.8); MEAN CORPUSCULAR HGB CONC 32 g/dL (32.3-35.6); MEAN CORPUSCULAR VOLUME 104.2 fL (75.5-95.3); MONOCYTES # (AUTO) 1.3 K/uL (0.1-1.30); MONOCYTES % (AUTO) 9.9 % (0.0-11.0); NEUTROPHILS # (AUTO) 9.7 K/uL (1.8-8.9); PLATELET COUNT (AUTO) 303 K/uL (179-408); RED CELL DISTRIBUTION WIDTH 21.4 % (12.3-17.7)
[2024-11-18 05:18] LABS: DIFFERENTIAL COMMENT 1; RED BLOOD CELL COUNT(AUTO) 2.38 MIL/uL (3.63-4.92)
[2024-11-18 08:00] VITALS: BP 111/14; TEMP 98.9; O2SAT 95
[2024-11-18 12:00] VITALS: BP 100/14; TEMP 97; O2SAT 95
[2024-11-18 16:00] VITALS: BP 106/55; TEMP 97.6; O2SAT 95
[2024-11-18] MEDS: PHYTONADIONE 10 MG/1 ML AMPUL SQ ONE (16:53)
[2024-11-18 20:00] VITALS: BP 111/68; TEMP 97.3; O2SAT 95
[2024-11-18 22:23] VITALS: O2SAT 97
[2024-11-19] VITALS (30 sets, daily range): BP systolic 83–135; BP diastolic 60–88; TEMP 97.6–99; O2SAT 94–100
[2024-11-19 05:18] LABS: BASOPHILS # (AUTO) 0.2 K/UL (0.0-0.2); BASOPHILS % (AUTO) 1.3 % (0.0-2.0); EOSINOPHILS # (AUTO) 0.2 K/uL (0.0-0.7); EOSINOPHILS % (AUTO) 1.3 % (0.0-7.0); HEMATOCRIT 25.1 % (31.2-41.9); HEMOGLOBIN 8.1 g/dL (10.9-14.3); LYMPHOCYTES # (AUTO) 1.3 K/uL (0.8-4.8); LYMPHOCYTES % (AUTO) 10.3 % (20.5-51.5); MEAN CORPUSCULAR HEMOGLOBIN 33.7 uug (24.7-32.8); MEAN CORPUSCULAR HGB CONC 32 g/dL (32.3-35.6); MEAN CORPUSCULAR VOLUME 104.5 fL (75.5-95.3); MONOCYTES # (AUTO) 1.4 K/uL (0.1-1.30); MONOCYTES % (AUTO) 10.8 % (0.0-11.0); NEUTROPHILS % (AUTO) 76.3 % (38.5-71.5); PLATELET COUNT (AUTO) 299 K/uL (179-408); RED CELL DISTRIBUTION WIDTH 21.4 % (12.3-17.7); WHITE BLOOD COUNT (AUTO) 13.1 K/uL (3.8-11.8)
[2024-11-19 05:27] LABS: DIFFERENTIAL COMMENT 1
[2024-11-19 05:32] LABS: ALBUMIN 1.8 g/dL (3.4-5.0); BILIRUBIN,TOTAL 23.9 mg/dL (0.2-1.0); CALCIUM 8.3 mg/dL (8.5-10.1); CREATININE 1.3 mg/dL (0.6-1.3); MAGNESIUM 1.7 mg/dL (1.8-2.4); PHOSPHOROUS 4.3 mg/dL (2.5-4.9); POTASSIUM 3.3 mmol/L (3.5-5.1); TOTAL PROTEIN, SERUM 4.7 g/dL (6.4-8.2)
[2024-11-19] MEDS: AMIODARONE HCL IV 150 MG in IV DEXTROSE 5% 100 ML IV ONE (08:15)
[2024-11-19] MEDS: IV NORMAL SALINE 500 ML IV ONE (08:52)
[2024-11-19] MEDS: MAGNESIUM SULFATE/D5W 100 ML IV SCH (09:49)
[2024-11-19 11:16] LABS: *BLOOD, URINE NEGATIVE (NEGATIVE); *CLARITY,URINE CLEAR (CLEAR); *COLOR,URINE AMBER (YELLOW); *KETONES,URINE TRACE (NEGATIVE); *PROTEIN,URINE 1+ (NEGATIVE); *UROBILINOGEN,URINE 0.2 E.U./dl (NORMAL); LEUKOCYTE ESTERASE ,URINE NEGATIVE (NEGATIVE); NITRITE, URINE NEGATIVE (NEGATIVE); UGLUCOSE TRACE (NEGATIVE)
[2024-11-19 11:18] LABS: *BILIRUBIN,URIN 3+ (NEGATIVE)
[2024-11-19] MEDS: POTASSIUM CHLORIDE 50 ML IV SCH (12:00)
[2024-11-19 12:07] LABS: FREE KAPPA LT CHAINS SERUM 46.8 mg/L (3.3-19.4); FREE LAMBDA LT CHAIN SERUM 34.4 mg/L (5.7-26.3); KAPPA/LAMBDA RATIO SERUM 1.36 (0.26-1.65)
[2024-11-19 12:12] LABS: BACTERIA,URINE FEW /HPF (NONE SEEN); SQUAMOUS EPITHELIAL CELL,UR FEW /HPF (NONE SEEN); WBC,URINE 0-3 /HPF (0-3); YEAST,URINE BUDDING YEAST /HPF (NONE SEEN)
[2024-11-19] MEDS ORDERED: AMIODARONE HCL IV 450 MG in IV DEXTROSE 5% 250 ML IV PRN (17:15)
[2024-11-19] MEDS: AMIODARONE HCL IV 450 MG in IV DEXTROSE 5% 250 ML IV PRN (17:42)
[2024-11-19] MEDS: TEMAZEPAM 15 MG CAPSULE PO PRN (22:44)
[2024-11-20] VITALS (29 sets, daily range): BP systolic 87–123; BP diastolic 52–97; TEMP 97.3–98.8; O2SAT 93–98
[2024-11-20 05:24] LABS: BASOPHILS # (AUTO) 0.1 K/UL (0.0-0.2); BASOPHILS % (AUTO) 1.2 % (0.0-2.0); EOSINOPHILS # (AUTO) 0.2 K/uL (0.0-0.7); EOSINOPHILS % (AUTO) 1.5 % (0.0-7.0); HEMATOCRIT 23.8 % (31.2-41.9); LYMPHOCYTES # (AUTO) 2.2 K/uL (0.8-4.8); LYMPHOCYTES % (AUTO) 19.2 % (20.5-51.5); MEAN CORPUSCULAR HEMOGLOBIN 34.3 uug (24.7-32.8); MEAN CORPUSCULAR HGB CONC 34 g/dL (32.3-35.6); MEAN CORPUSCULAR VOLUME 102.6 fL (75.5-95.3); MONOCYTES # (AUTO) 1.3 K/uL (0.1-1.30); MONOCYTES % (AUTO) 11.4 % (0.0-11.0); NEUTROPHILS # (AUTO) 7.6 K/uL (1.8-8.9); NEUTROPHILS % (AUTO) 66.7 % (38.5-71.5); PLATELET COUNT (AUTO) 288 K/uL (179-408); WHITE BLOOD COUNT (AUTO) 11.4 K/uL (3.8-11.8)
[2024-11-20 05:25] LABS: DIFFERENTIAL COMMENT 1; RED BLOOD CELL COUNT(AUTO) 2.32 MIL/uL (3.63-4.92)
[2024-11-20 05:26] LABS: ALBUMIN 1.7 g/dL (3.4-5.0); BILIRUBIN,TOTAL 24.8 mg/dL (0.2-1.0); CALCIUM 8.6 mg/dL (8.5-10.1); CREATININE 1.3 mg/dL (0.6-1.3); MAGNESIUM 2.1 mg/dL (1.8-2.4); PHOSPHOROUS 3.5 mg/dL (2.5-4.9); POTASSIUM 3.1 mmol/L (3.5-5.1); TOTAL PROTEIN, SERUM 4.9 g/dL (6.4-8.2)
[2024-11-20] MEDS: POTASSIUM CHLORIDE 50 ML IV ONE (08:03)
[2024-11-20] MEDS: POTASSIUM CHLORIDE 50 ML IV SCH (11:38)
[2024-11-21] VITALS (13 sets, daily range): BP systolic 92–136; BP diastolic 51–89; TEMP 97.9–98.8; O2SAT 93–99
[2024-11-21 05:01] LABS: BASOPHILS # (AUTO) 0.1 K/UL (0.0-0.2); BASOPHILS % (AUTO) 0.7 % (0.0-2.0); EOSINOPHILS # (AUTO) 0.3 K/uL (0.0-0.7); EOSINOPHILS % (AUTO) 2.2 % (0.0-7.0); HEMATOCRIT 23.6 % (31.2-41.9); HEMOGLOBIN 7.9 g/dL (10.9-14.3); LYMPHOCYTES # (AUTO) 1.4 K/uL (0.8-4.8); LYMPHOCYTES % (AUTO) 11.3 % (20.5-51.5); MEAN CORPUSCULAR HEMOGLOBIN 33.8 uug (24.7-32.8); MEAN CORPUSCULAR HGB CONC 33 g/dL (32.3-35.6); MEAN CORPUSCULAR VOLUME 101.1 fL (75.5-95.3); MONOCYTES # (AUTO) 1.4 K/uL (0.1-1.30); MONOCYTES % (AUTO) 11.6 % (0.0-11.0); NEUTROPHILS # (AUTO) 9.1 K/uL (1.8-8.9); NEUTROPHILS % (AUTO) 74.2 % (38.5-71.5); PLATELET COUNT (AUTO) 300 K/uL (179-408); RED CELL DISTRIBUTION WIDTH 19.9 % (12.3-17.7); WHITE BLOOD COUNT (AUTO) 12.3 K/uL (3.8-11.8)
[2024-11-21 05:10] LABS: DIFFERENTIAL COMMENT 1; RED BLOOD CELL COUNT(AUTO) 2.34 MIL/uL (3.63-4.92)
[2024-11-21 05:20] LABS: ALBUMIN 1.7 g/dL (3.4-5.0); BILIRUBIN,TOTAL 24.3 mg/dL (0.2-1.0); CALCIUM 8.7 mg/dL (8.5-10.1); CREATININE 1.2 mg/dL (0.6-1.3); PHOSPHOROUS 3.1 mg/dL (2.5-4.9); POTASSIUM 3.1 mmol/L (3.5-5.1); TOTAL PROTEIN, SERUM 4.9 g/dL (6.4-8.2)
[2024-11-21] MEDS: POTASSIUM CHLORIDE 20 MEQ POWDER PACKET GT ONE (09:14)
[2024-11-21] MEDS: POTASSIUM CHLORIDE 50 ML IV SCH (09:22)
[2024-11-21] MEDS ORDERED: PIPERACILLIN SODIUM/TAZOBACTAM 3.375 G in IV DEXTROSE 5% 50 ML IV SCH ×2 (21:30→22:00)
[2024-11-21] MEDS ORDERED: FLUCONAZOLE 100 MG TABLET ONE (22:09)
[2024-11-21] MEDS: FLUCONAZOLE 200 MG TABLET PO ONE (22:30)
[2024-11-22] VITALS (7 sets, daily range): BP systolic 92–124; BP diastolic 53–69; TEMP 97.7–98.3; O2SAT 95–99
[2024-11-22 07:44] LABS: BASOPHILS # (AUTO) 0.1 K/UL (0.0-0.2); BASOPHILS % (AUTO) 0.7 % (0.0-2.0); DIFFERENTIAL COMMENT 0; EOSINOPHILS # (AUTO) 0.2 K/uL (0.0-0.7); EOSINOPHILS % (AUTO) 1.6 % (0.0-7.0); HEMATOCRIT 23.8 % (31.2-41.9); HEMOGLOBIN 8.1 g/dL (10.9-14.3); MEAN CORPUSCULAR HGB CONC 34 g/dL (32.3-35.6); MEAN CORPUSCULAR VOLUME 100.2 fL (75.5-95.3); MONOCYTES # (AUTO) 1.3 K/uL (0.1-1.30); MONOCYTES % (AUTO) 11.1 % (0.0-11.0); NEUTROPHILS # (AUTO) 9.1 K/uL (1.8-8.9); NEUTROPHILS % (AUTO) 77.6 % (38.5-71.5); PLATELET COUNT (AUTO) 273 K/uL (179-408); RED BLOOD CELL COUNT(AUTO) 2.38 MIL/uL (3.63-4.92); RED CELL DISTRIBUTION WIDTH 19.6 % (12.3-17.7); WHITE BLOOD COUNT (AUTO) 11.7 K/uL (3.8-11.8)
[2024-11-22] MEDS: PHYTONADIONE 10 MG/1 ML AMPUL IM ONE (16:42)
[2024-11-22] MEDS: PHYTONADIONE 10 MG/1 ML AMPUL SQ ONE (16:42)
[2024-11-22] MEDS: METRONIDAZOLE 500 MG TABLET PO SCH (21:03)
[2024-11-23 04:58] VITALS: BP 109/70; TEMP 97.9; O2SAT 96
[2024-11-23 06:33] LABS: BASOPHILS # (AUTO) 0.1 K/UL (0.0-0.2); BASOPHILS % (AUTO) 0.5 % (0.0-2.0); EOSINOPHILS # (AUTO) 0.1 K/uL (0.0-0.7); HEMATOCRIT 24.9 % (31.2-41.9); HEMOGLOBIN 8.5 g/dL (10.9-14.3); LYMPHOCYTES # (AUTO) 1.1 K/uL (0.8-4.8); LYMPHOCYTES % (AUTO) 7.6 % (20.5-51.5); MEAN CORPUSCULAR HEMOGLOBIN 34.2 uug (24.7-32.8); MEAN CORPUSCULAR HGB CONC 34 g/dL (32.3-35.6); MEAN CORPUSCULAR VOLUME 99.7 fL (75.5-95.3); MONOCYTES # (AUTO) 1.5 K/uL (0.1-1.30); MONOCYTES % (AUTO) 10.5 % (0.0-11.0); NEUTROPHILS # (AUTO) 11.3 K/uL (1.8-8.9); NEUTROPHILS % (AUTO) 80.4 % (38.5-71.5); PLATELET COUNT (AUTO) 340 K/uL (179-408); RED CELL DISTRIBUTION WIDTH 19.3 % (12.3-17.7); WHITE BLOOD COUNT (AUTO) 14.1 K/uL (3.8-11.8)
[2024-11-23 06:39] LABS: DIFFERENTIAL COMMENT 1
[2024-11-23 06:58] LABS: ALBUMIN 1.8 g/dL (3.4-5.0); BILIRUBIN,TOTAL 25.7 mg/dL (0.2-1.0); CALCIUM 8.7 mg/dL (8.5-10.1); CREATININE 1.3 mg/dL (0.6-1.3); MAGNESIUM 1.9 mg/dL (1.8-2.4); PHOSPHOROUS 4.1 mg/dL (2.5-4.9); POTASSIUM 4.1 mmol/L (3.5-5.1); TOTAL PROTEIN, SERUM 5.1 g/dL (6.4-8.2)
[2024-11-23 07:36] VITALS: BP 134/43; TEMP 98.7; O2SAT 100
[2024-11-23 11:05] VITALS: BP 121/60; TEMP 97.7; O2SAT 97
[2024-11-23 14:59] VITALS: BP 122/76; TEMP 98.4; O2SAT 95
[2024-11-23] MEDS: PANTOPRAZOLE SODIUM 40 MG TABLET.DR PO SCH (16:07)
[2024-11-23] MEDS: ENSURE ENLIVE (VAN) 240 ML LIQUID PO SCH (16:10)
[2024-11-23 20:15] VITALS: BP 114/73; TEMP 98; O2SAT 97
[2024-11-24 01:28] VITALS: BP 117/70; TEMP 98.1; O2SAT 98
[2024-11-24 04:56] VITALS: BP 98/59; TEMP 97.6; O2SAT 98
[2024-11-24 07:10] LABS: BASOPHILS # (AUTO) 0.1 K/UL (0.0-0.2); BASOPHILS % (AUTO) 0.3 % (0.0-2.0); DIFFERENTIAL COMMENT 0; EOSINOPHILS # (AUTO) 0.3 K/uL (0.0-0.7); EOSINOPHILS % (AUTO) 1.7 % (0.0-7.0); HEMATOCRIT 26.3 % (31.2-41.9); HEMOGLOBIN 8.6 g/dL (10.9-14.3); LYMPHOCYTES # (AUTO) 1.2 K/uL (0.8-4.8); LYMPHOCYTES % (AUTO) 7.4 % (20.5-51.5); MEAN CORPUSCULAR HGB CONC 33 g/dL (32.3-35.6); MEAN CORPUSCULAR VOLUME 101.4 fL (75.5-95.3); MONOCYTES # (AUTO) 1.6 K/uL (0.1-1.30); NEUTROPHILS # (AUTO) 12.7 K/uL (1.8-8.9); NEUTROPHILS % (AUTO) 80.6 % (38.5-71.5); PLATELET COUNT (AUTO) 363 K/uL (179-408); RED CELL DISTRIBUTION WIDTH 19.5 % (12.3-17.7); WHITE BLOOD COUNT (AUTO) 15.8 K/uL (3.8-11.8)
[2024-11-24 07:59] VITALS: BP 106/63; TEMP 97.9; O2SAT 100
[2024-11-24 16:19] VITALS: BP 111/68; TEMP 97.9; O2SAT 99
[2024-11-24 19:00] VITALS: BP 113/71; TEMP 98.5; O2SAT 96
[2024-11-25 06:58] LABS: BASOPHILS % (AUTO) 0.3 % (0.0-2.0); EOSINOPHILS # (AUTO) 0.3 K/uL (0.0-0.7); EOSINOPHILS % (AUTO) 1.9 % (0.0-7.0); HEMATOCRIT 24.6 % (31.2-41.9); HEMOGLOBIN 8.2 g/dL (10.9-14.3); LYMPHOCYTES # (AUTO) 1.3 K/uL (0.8-4.8); LYMPHOCYTES % (AUTO) 8.3 % (20.5-51.5); MEAN CORPUSCULAR HEMOGLOBIN 33.2 uug (24.7-32.8); MEAN CORPUSCULAR HGB CONC 33 g/dL (32.3-35.6); MEAN CORPUSCULAR VOLUME 99.4 fL (75.5-95.3); MONOCYTES # (AUTO) 1.6 K/uL (0.1-1.30); MONOCYTES % (AUTO) 10.3 % (0.0-11.0); NEUTROPHILS # (AUTO) 12.1 K/uL (1.8-8.9); NEUTROPHILS % (AUTO) 79.2 % (38.5-71.5); PLATELET COUNT (AUTO) 353 K/uL (179-408); RED CELL DISTRIBUTION WIDTH 18.8 % (12.3-17.7); WHITE BLOOD COUNT (AUTO) 15.2 K/uL (3.8-11.8)
[2024-11-25 07:20] LABS: ALBUMIN 1.7 g/dL (3.4-5.0); BILIRUBIN,TOTAL 24.2 mg/dL (0.2-1.0); CREATININE 1.4 mg/dL (0.6-1.3); PHOSPHOROUS 4.7 mg/dL (2.5-4.9); POTASSIUM 3.8 mmol/L (3.5-5.1); TOTAL PROTEIN, SERUM 4.9 g/dL (6.4-8.2)
[2024-11-25 07:22] LABS: DIFFERENTIAL COMMENT 1; RED BLOOD CELL COUNT(AUTO) 2.47 MIL/uL (3.63-4.92)
[2024-11-25] MEDS ORDERED: LORAZEPAM 2 MG/1 ML VIAL IV PRN (07:45)
[2024-11-25 11:12] VITALS: BP 106/61; TEMP 97.6; O2SAT 99
[2024-11-25 16:02] VITALS: BP 106/70; TEMP 97.8; O2SAT 98
[2024-11-25 19:00] VITALS: BP 97/59; TEMP 97.8; O2SAT 97
[2024-11-26 05:28] LABS: BASOPHILS # (AUTO) 0.1 K/UL (0.0-0.2); BASOPHILS % (AUTO) 0.5 % (0.0-2.0); EOSINOPHILS # (AUTO) 0.3 K/uL (0.0-0.7); HEMATOCRIT 24.6 % (31.2-41.9); HEMOGLOBIN 8.2 g/dL (10.9-14.3); LYMPHOCYTES # (AUTO) 1.4 K/uL (0.8-4.8); LYMPHOCYTES % (AUTO) 9.3 % (20.5-51.5); MEAN CORPUSCULAR HEMOGLOBIN 32.5 uug (24.7-32.8); MEAN CORPUSCULAR HGB CONC 33 g/dL (32.3-35.6); MEAN CORPUSCULAR VOLUME 97.9 fL (75.5-95.3); MONOCYTES # (AUTO) 1.5 K/uL (0.1-1.30); MONOCYTES % (AUTO) 9.8 % (0.0-11.0); NEUTROPHILS # (AUTO) 11.8 K/uL (1.8-8.9); NEUTROPHILS % (AUTO) 78.4 % (38.5-71.5); PLATELET COUNT (AUTO) 391 K/uL (179-408); RED BLOOD CELL COUNT(AUTO) 2.51 MIL/uL (3.63-4.92); RED CELL DISTRIBUTION WIDTH 18.4 % (12.3-17.7); WHITE BLOOD COUNT (AUTO) 15.1 K/uL (3.8-11.8)
[2024-11-26 05:41] LABS: DIFFERENTIAL COMMENT 1
[2024-11-26 05:56] LABS: ALBUMIN 1.8 g/dL (3.4-5.0); CALCIUM 8.8 mg/dL (8.5-10.1); CREATININE 1.4 mg/dL (0.6-1.3); TOTAL PROTEIN, SERUM 5.1 g/dL (6.4-8.2)
[2024-11-26 06:00] VITALS: BP 111/73; TEMP 97.7; O2SAT 100
[2024-11-26] MEDS ORDERED: SPIR50TA PO (08:47)
[2024-11-26] MEDS ORDERED: FURO20TA4 PO (08:47)
[2024-11-26] MEDS ORDERED: CITR30SO6 PO (08:47)
[2024-11-26] MEDS ORDERED: THIA100T13 PO (08:47)
[2024-11-26] MEDS ORDERED: LACT10SO7 PO (08:47)
[2024-11-26] MEDS ORDERED: PANT40TA49 PO (08:47)
[2024-11-26] MEDS ORDERED: SUCR1TAB31 PO (08:47)
[2024-11-26] MEDS ORDERED: PROP20TA7 PO (08:47)
[2024-11-26] MEDS ORDERED: RIFA550T PO (08:47)
[2024-11-26] MEDS ORDERED: GABA-532 PO (08:47)
[2024-11-26] MEDS ORDERED: FOLI1TAB94 PO (08:47)
[2024-11-26 11:05] VITALS: BP 121/58; TEMP 98.2; O2SAT 97
[2024-11-26] MEDS: SOD FERRIC GLUC COMPLX/SUCROSE 125 MG in IV NORMAL SALINE 100 ML IV SCH (14:15)
== END 2024-11-26 15:35 | DRG 242 ==
LOC: ER 14:30 → UNDOADMIN 18:53 → TRANSITION 18:53 → CCU 19:39 → TELE3 11-07 07:15 → CCU 11-13 23:30 → TELE-TD3 11-21 21:07 → TELE3 11-22 17:22 → MEDSURG3 11-24 08:04
PROVIDERS: ADMIT Internal Medicine; ATTEND Internal Medicine
PROC: 30233K1 Transfusion of Nonautologous Frozen Plasma into Peripheral Vein, Percutaneous Approach (ICD-10-PCS; 2024-11-05)
PROC: 30233N1 Transfusion of Nonautologous Red Blood Cells into Peripheral Vein, Percutaneous Approach (ICD-10-PCS; 2024-11-05)
PROC: 05HF33Z Insertion of Infusion Device into Left Cephalic Vein, Percutaneous Approach (ICD-10-PCS; 2024-11-05)
PROC: 05HC33Z Insertion of Infusion Device into Left Basilic Vein, Percutaneous Approach (ICD-10-PCS; principal; 2024-11-06)
PROC: 0W3P8ZZ Control Bleeding in Gastrointestinal Tract, Via Natural or Artificial Opening Endoscopic (ICD-10-PCS; principal; 2024-11-06)
DX: K22.6 Gastro-esophageal laceration-hemorrhage syndrome (principal); N17.0 Acute kidney failure with tubular necrosis; K72.00 Acute and subacute hepatic failure without coma; J69.0 Pneumonitis due to inhalation of food and vomit; A41.9 Sepsis, unspecified organism; R57.1 Hypovolemic shock; R65.21 Severe sepsis with septic shock; G92.8 Other toxic encephalopathy; D61.818 Other pancytopenia; K70.31 Alcoholic cirrhosis of liver with ascites; I50.31 Acute diastolic (congestive) heart failure; K76.82 Hepatic encephalopathy; K72.10 Chronic hepatic failure without coma; E87.20 Acidosis, unspecified; D62 Acute posthemorrhagic anemia; J18.9 Pneumonia, unspecified organism; K44.9 Diaphragmatic hernia without obstruction or gangrene; K29.70 Gastritis, unspecified, without bleeding; D68.4 Acquired coagulation factor deficiency; E87.6 Hypokalemia; Z87.891 Personal history of nicotine dependence; F39 Unspecified mood [affective] disorder; I48.0 Paroxysmal atrial fibrillation; E86.1 Hypovolemia; E87.1 Hypo-osmolality and hyponatremia; E83.42 Hypomagnesemia; B37.49 Other urogenital candidiasis; I48.92 Unspecified atrial flutter; I45.10 Unspecified right bundle-branch block; K52.89 Other specified noninfective gastroenteritis and colitis; K76.0 Fatty (change of) liver, not elsewhere classified; K80.20 Calculus of gallbladder without cholecystitis without obstruction; F29 Unspecified psychosis not due to a substance or known physiological condition; R63.4 Abnormal weight loss; Z68.25 Body mass index [BMI] 25.0-25.9, adult; I47.10 Supraventricular tachycardia, unspecified; Z86.39 Personal history of other endocrine, nutritional and metabolic disease; Z78.1 Physical restraint status
CPT/HCPCS: 36415; 36600; 70030-TC; 70450; 71045; 74170; 76700; 76705; 82746; 82784; 82803; 83550; 83605; 83690; 83735; 83921; 84100; 84155; 84165; 84300; 84443; 84484; 85018; 85025; 85610; 85730; 86038; 86140; 86334; 86430; 86706; 86803; 86850; 86900; 86901; 86920; 87040; 87086; 87340; 87806; 88185; 93005; 93307; A4606; A4663; A6213; G0378; J0282; J0696; J1450; J1940; J2060; J2250; J2354; J2405; J2470; J2543; J2916; J3370; J3371; J3411; J3430; J3475; J3480; J3490; J7040; J7042; J7050; J7060; J7070; P9016; P9059; Q9967

== ENCOUNTER 2024-12-09 19:30 | Inpatient (IN) | payer OTHER ==
[~2024-12-09] VITALS: Ht 160 cm; Wt 85.8 kg
[~2024-12-09 19:30] MED LIST: CITR30SO6 PO; FOLI1TAB94 PO; FURO20TA4 PO; GABA-532 PO; LACT10SO7 PO; PANT40TA49 PO; PROP20TA7 PO; RIFA550T PO; SPIR50TA PO; SUCR1TAB31 PO; THIA100T13 PO
[2024-12-09] MEDS ORDERED: CEFTRIAXONE /D5W 50ML IVPB **ER PYXIS IV ONE (20:05)
[2024-12-09 20:11] LABS: BASOPHILS # (AUTO) 0.1 K/UL (0.0-0.2); EOSINOPHILS # (AUTO) 0.2 K/uL (0.0-0.7); EOSINOPHILS % (AUTO) 2.2 % (0.0-7.0); HEMATOCRIT 26.5 % (31.2-41.9); HEMOGLOBIN 8.8 g/dL (10.9-14.3); LYMPHOCYTES # (AUTO) 1.2 K/uL (0.8-4.8); LYMPHOCYTES % (AUTO) 14.2 % (20.5-51.5); MEAN CORPUSCULAR HEMOGLOBIN 31.9 uug (24.7-32.8); MEAN CORPUSCULAR HGB CONC 33 g/dL (32.3-35.6); MEAN CORPUSCULAR VOLUME 96.2 fL (75.5-95.3); MONOCYTES # (AUTO) 0.9 K/uL (0.1-1.30); MONOCYTES % (AUTO) 10.5 % (0.0-11.0); NEUTROPHILS % (AUTO) 72.1 % (38.5-71.5); PLATELET COUNT (AUTO) 180 K/uL (179-408); RED BLOOD CELL COUNT(AUTO) 2.76 MIL/uL (3.63-4.92); RED CELL DISTRIBUTION WIDTH 19.7 % (12.3-17.7); WHITE BLOOD COUNT (AUTO) 8.3 K/uL (3.8-11.8)
[2024-12-09 20:15] LABS: DIFFERENTIAL COMMENT 1
[2024-12-09 20:19] LABS: CALCIUM 8.3 mg/dL (8.5-10.1); CARBON DIOXIDE 20 mmol/L (21-32); CHLORIDE 109 mmol/L (98-107); CREATININE 0.8 mg/dL (0.6-1.3); GLUCOSE 111 mg/dL (74-106); POTASSIUM 3.3 mmol/L (3.5-5.1); SODIUM SERUM 143 mmol/L (136-145); UREA NITROGEN, BLOOD 14 mg/dL (7-18)
[2024-12-09 20:20] LABS: ETHANOL < 3 MG/DL (0-10)
[2024-12-09] MEDS: IV NORMAL SALINE 1000 ML BAG IV ONE (20:24)
[2024-12-09] MEDS: CEFTRIAXONE 1 G in IV DEXTROSE 5% 50 ML IV ONE (20:24)
[2024-12-09 20:30] LABS: LACTIC ACID 2.2 mmol/L (0.4-2.0)
[2024-12-09 20:32] LABS: ALANINE AMINOTRANSFERASE 33 U/L (14-59); ALBUMIN 1.9 g/dL (3.4-5.0); ALKALINE PHOSPHATASE 235 U/L (50-136); ASPARTATE AMINOTRANSFERASE 79 U/L (15-37); BILIRUBIN,DIRECT 5.7 mg/dL (0.0-0.2); BILIRUBIN,TOTAL 6.9 mg/dL (0.2-1.0); CREATINE KINASE, TOTAL 15 U/L (26-192); NT-PRO BNP 2849 pg/mL (0-125); TOTAL PROTEIN, SERUM 5.5 g/dL (6.4-8.2)
[2024-12-09 20:33] LABS: ACETAMINOPHEN < 2.0 ug/mL (10-30)
[2024-12-09 21:20] LABS: *BILIRUBIN,URIN 2+ (NEGATIVE); *BLOOD, URINE NEGATIVE (NEGATIVE); *CLARITY,URINE CLEAR (CLEAR); *COLOR,URINE DARK YELLOW (YELLOW); *KETONES,URINE NEGATIVE (NEGATIVE); *PROTEIN,URINE TRACE (NEGATIVE); *UROBILINOGEN,URINE 0.2 E.U./dl (NORMAL); LEUKOCYTE ESTERASE ,URINE NEGATIVE (NEGATIVE); NITRITE, URINE NEGATIVE (NEGATIVE); UGLUCOSE NEGATIVE (NEGATIVE)
[2024-12-09 21:28] LABS: BACTERIA,URINE NONE SEEN /HPF (NONE SEEN); RBC,URINE NONE SEEN /HPF (0-3); SQUAMOUS EPITHELIAL CELL,UR FEW /HPF (NONE SEEN); WBC,URINE 0-3 /HPF (0-3)
[2024-12-09 21:29] LABS: CALCIUM OXALATE CRYSTALS,UR FEW /HPF (NONE SEEN)
[2024-12-09] MEDS ORDERED: GLYC488L PO (21:32)
[2024-12-09] MEDS ORDERED: GUAI-1197 PO (21:32)
[2024-12-09] MEDS ORDERED: BISA10SU61 RC (21:32)
[2024-12-09] MEDS ORDERED: ACET-3117 PO (21:32)
[2024-12-09] MEDS ORDERED: ASCO500C18 PO (21:32)
[2024-12-09] MEDS ORDERED: ZINC50TA69 PO (21:32)
[2024-12-09 21:33] LABS: *AMPHETAMINE, URINE NEGATIVE (NEGATIVE); *BARBITURATE, URINE NEGATIVE (NEGATIVE); *BENZODIAZEPINE, URINE NEGATIVE (NEGATIVE); *CANNABINOID, URINE NEGATIVE (NEGATIVE); *COCCAINE, URINE NEGATIVE (NEGATIVE); *OPIATE, URINE NEGATIVE (NEGATIVE); *PHENCYCLIDINE SCREEN,URINE NEGATIVE (NEGATIVE); FENTANYL, URINE NEGATIVE (NEGATIVE)
[2024-12-09] MEDS ORDERED: REMEDY ESSENTIAL ZINC PASTE 113 GM TP PRN (21:45)
[2024-12-09] MEDS ORDERED: ACETAMINOPHEN 325 MG TABLET PO PRN (21:45)
[2024-12-09] MEDS ORDERED: ONDANSETRON 4 MG/2 ML VIAL IV PRN (21:45)
[2024-12-09] MEDS ORDERED: MAGNESIUM HYDROXIDE 30 ML LIQUID UDC PO PRN (21:45)
[2024-12-10] VITALS (7 sets, daily range): BP systolic 94–112; BP diastolic 48–67; TEMP 97.5–98.6; O2SAT 94–99
[2024-12-10] MEDS ORDERED: PIPERACILLIN/TAZOBACTAM/D5W 50 ML IV ONE (05:29)
[2024-12-10] MEDS ORDERED: VANCOMYCIN 1000 MG VIAL ONE (05:29)
[2024-12-10] MEDS ORDERED: VANCOMYCIN HCL 500 MG VIAL ONE (05:30)
[2024-12-10] MEDS: PIPERACILLIN SODIUM/TAZOBACTAM 3.375 G in IV DEXTROSE 5% 50 ML IV SCH (05:36)
[2024-12-10] MEDS: VANCOMYCIN HCL IV ONE (06:05)
[2024-12-10] MEDS: NORMAL SALINE IV ONE (06:05)
[2024-12-10] MEDS: PANTOPRAZOLE SODIUM 40 MG TABLET.DR PO SCH (07:00)
[2024-12-10 07:03] LABS: BASOPHILS # (AUTO) 0.1 K/UL (0.0-0.2); BASOPHILS % (AUTO) 1.2 % (0.0-2.0); EOSINOPHILS # (AUTO) 0.2 K/uL (0.0-0.7); EOSINOPHILS % (AUTO) 2.8 % (0.0-7.0); LYMPHOCYTES % (AUTO) 15.2 % (20.5-51.5); MEAN CORPUSCULAR HEMOGLOBIN 32.5 uug (24.7-32.8); MEAN CORPUSCULAR HGB CONC 34 g/dL (32.3-35.6); MEAN CORPUSCULAR VOLUME 96.9 fL (75.5-95.3); MONOCYTES # (AUTO) 0.9 K/uL (0.1-1.30); MONOCYTES % (AUTO) 13.9 % (0.0-11.0); NEUTROPHILS # (AUTO) 4.4 K/uL (1.8-8.9); NEUTROPHILS % (AUTO) 66.9 % (38.5-71.5); PLATELET COUNT (AUTO) 161 K/uL (179-408); RED CELL DISTRIBUTION WIDTH 20.1 % (12.3-17.7); WHITE BLOOD COUNT (AUTO) 6.6 K/uL (3.8-11.8)
[2024-12-10 07:22] LABS: DIFFERENTIAL COMMENT 1; RED BLOOD CELL COUNT(AUTO) 2.48 MIL/uL (3.63-4.92)
[2024-12-10 07:32] LABS: CALCIUM 7.7 mg/dL (8.5-10.1); CREATININE 0.7 mg/dL (0.6-1.3); MAGNESIUM 1.4 mg/dL (1.8-2.4); POTASSIUM 3.2 mmol/L (3.5-5.1)
[2024-12-10] MEDS ORDERED: Medication Not On Formulary EA (Ascorbic Acid (Vitamin C) 500 MG) PO SCH (09:00)
[2024-12-10] MEDS ORDERED: ENOXAPARIN SODIUM 40 MG/0.4 ML DISP.SYRIN SQ SCH (09:00)
[2024-12-10] MEDS: LACTULOSE 20 G/30 ML LIQUID UDC PO SCH (09:39)
[2024-12-10] MEDS: ASCORBIC ACID 500 MG TABLET PO SCH (09:40)
[2024-12-10] MEDS: GABAPENTIN 100 MG CAPSULE PO SCH (09:40)
[2024-12-10] MEDS: FOLIC ACID 1 MG TABLET PO SCH (09:40)
[2024-12-10] MEDS: THIAMINE HCL 100 MG TABLET PO SCH (09:42)
[2024-12-10] MEDS: PROPRANOLOL HCL 20 MG TABLET PO SCH (09:43)
[2024-12-10] MEDS: RIFAXIMIN 550 MG TABLET PO SCH (09:59)
[2024-12-10] MEDS: MAGNESIUM OXIDE 400 MG TABLET PO SCH (10:00)
[2024-12-10] MEDS: POTASSIUM CHLORIDE 20 MEQ TAB.PRT.SR PO ONE (10:00)
[2024-12-10] MEDS ORDERED: PANT40TA49 PO (10:09)
[2024-12-10] MEDS ORDERED: PIPERACILLIN SODIUM/TAZOBACTAM 3.375 G in IV DEXTROSE 5% 50 ML IV SCH (12:00)
[2024-12-10] MEDS: ENSURE ENLIVE (VAN) 240 ML LIQUID PO SCH (12:53)
[2024-12-10] MEDS: PIPERACILLIN SODIUM/TAZOBACTAM 3.375 G in IV DEXTROSE 5% 100 ML IV SCH (14:47)
[2024-12-10] MEDS: VANCOMYCIN IV 1,250 MG in IV DEXTROSE 5% 250 ML IV SCH (21:15)
[2024-12-10 22:04] LABS: LACTIC ACID 2.3 mmol/L (0.4-2.0)
[2024-12-11] MEDS: PANTOPRAZOLE SODIUM 40 MG TABLET.DR PO SCH (06:27)
[2024-12-11 06:38] LABS: ALBUMIN 1.7 g/dL (3.4-5.0); BILIRUBIN,DIRECT 5.1 mg/dL (0.0-0.2); BILIRUBIN,TOTAL 6.3 mg/dL (0.2-1.0); CREATININE 0.7 mg/dL (0.6-1.3); MAGNESIUM 1.5 mg/dL (1.8-2.4); POTASSIUM 3.4 mmol/L (3.5-5.1); TOTAL PROTEIN, SERUM 4.9 g/dL (6.4-8.2)
[2024-12-11 07:09] VITALS: BP 104/66; TEMP 98.1; O2SAT 97
[2024-12-11] MEDS: POTASSIUM CHLORIDE 20 MEQ TAB.PRT.SR PO ONE (09:59)
[2024-12-11] MEDS: MAGNESIUM OXIDE 400 MG TABLET PO ONE (09:59)
[2024-12-11] MEDS: GUAIFENESIN SUGAR FREE 100 MG/5 ML UDC PO PRN (10:37)
[2024-12-11 11:02] VITALS: BP 98/57; TEMP 98; O2SAT 97
[2024-12-11 15:27] VITALS: BP 104/62; TEMP 97.8; O2SAT 99
[2024-12-11] MEDS: FUROSEMIDE 20 MG TABLET PO SCH (16:33)
[2024-12-11 19:50] VITALS: BP 103/76; TEMP 97.4; O2SAT 94
[2024-12-12 07:04] LABS: BASOPHILS # (AUTO) 0.1 K/UL (0.0-0.2); BASOPHILS % (AUTO) 0.9 % (0.0-2.0); EOSINOPHILS # (AUTO) 0.2 K/uL (0.0-0.7); EOSINOPHILS % (AUTO) 2.8 % (0.0-7.0); HEMATOCRIT 26.4 % (31.2-41.9); HEMOGLOBIN 8.8 g/dL (10.9-14.3); LYMPHOCYTES # (AUTO) 1.1 K/uL (0.8-4.8); LYMPHOCYTES % (AUTO) 17.5 % (20.5-51.5); MEAN CORPUSCULAR HEMOGLOBIN 32.6 uug (24.7-32.8); MEAN CORPUSCULAR HGB CONC 33 g/dL (32.3-35.6); MEAN CORPUSCULAR VOLUME 97.7 fL (75.5-95.3); MONOCYTES # (AUTO) 0.8 K/uL (0.1-1.30); MONOCYTES % (AUTO) 12.6 % (0.0-11.0); NEUTROPHILS # (AUTO) 4.3 K/uL (1.8-8.9); NEUTROPHILS % (AUTO) 66.2 % (38.5-71.5); PLATELET COUNT (AUTO) 170 K/uL (179-408); RED CELL DISTRIBUTION WIDTH 20.2 % (12.3-17.7); WHITE BLOOD COUNT (AUTO) 6.5 K/uL (3.8-11.8)
[2024-12-12 07:12] LABS: DIFFERENTIAL COMMENT 1
[2024-12-12 07:14] LABS: CALCIUM 8.1 mg/dL (8.5-10.1); CREATININE 0.7 mg/dL (0.6-1.3); MAGNESIUM 1.5 mg/dL (1.8-2.4); POTASSIUM 3.7 mmol/L (3.5-5.1)
[2024-12-12 07:32] VITALS: BP 133/63; TEMP 98.5; O2SAT 98
[2024-12-12] MEDS: SPIRONOLACTONE 50 MG TABLET PO SCH (08:17)
[2024-12-12] MEDS: MAGNESIUM OXIDE 400 MG TABLET PO ONE (10:13)
[2024-12-12 11:50] VITALS: BP 98/54; TEMP 97.9; O2SAT 99
[2024-12-12 15:50] VITALS: BP 119/69; TEMP 97.8; O2SAT 98
[2024-12-12 19:30] VITALS: BP 99/65; TEMP 98.8; O2SAT 98
[2024-12-13 06:38] LABS: BASOPHILS # (AUTO) 0.1 K/UL (0.0-0.2); BASOPHILS % (AUTO) 1.3 % (0.0-2.0); EOSINOPHILS # (AUTO) 0.2 K/uL (0.0-0.7); EOSINOPHILS % (AUTO) 2.6 % (0.0-7.0); HEMATOCRIT 24.8 % (31.2-41.9); HEMOGLOBIN 8.3 g/dL (10.9-14.3); LYMPHOCYTES # (AUTO) 1.2 K/uL (0.8-4.8); LYMPHOCYTES % (AUTO) 19.6 % (20.5-51.5); MEAN CORPUSCULAR HEMOGLOBIN 32.1 uug (24.7-32.8); MEAN CORPUSCULAR HGB CONC 34 g/dL (32.3-35.6); MONOCYTES # (AUTO) 0.8 K/uL (0.1-1.30); MONOCYTES % (AUTO) 12.1 % (0.0-11.0); NEUTROPHILS % (AUTO) 64.4 % (38.5-71.5); PLATELET COUNT (AUTO) 200 K/uL (179-408); RED BLOOD CELL COUNT(AUTO) 2.59 MIL/uL (3.63-4.92); RED CELL DISTRIBUTION WIDTH 19.4 % (12.3-17.7); WHITE BLOOD COUNT (AUTO) 6.2 K/uL (3.8-11.8)
[2024-12-13 06:44] VITALS: BP 103/61; TEMP 98.6; O2SAT 99
[2024-12-13 06:45] LABS: DIFFERENTIAL COMMENT 1
[2024-12-13 06:49] LABS: CALCIUM 7.9 mg/dL (8.5-10.1); CREATININE 0.7 mg/dL (0.6-1.3); MAGNESIUM 1.3 mg/dL (1.8-2.4); PHOSPHOROUS 3.3 mg/dL (2.5-4.9); POTASSIUM 3.6 mmol/L (3.5-5.1)
[2024-12-13 11:12] VITALS: BP 111/59; TEMP 98.6; O2SAT 98
[2024-12-13] MEDS: MAGNESIUM OXIDE 400 MG TABLET PO SCH (11:16)
[2024-12-13 15:06] VITALS: BP 116/61; TEMP 98.4; O2SAT 98
[2024-12-13] MEDS: MEDIHONEY= THERAHONEY 1.5 OZ TUBE TOP SCH (15:18)
[2024-12-13 19:30] VITALS: BP 100/69; TEMP 99; O2SAT 99
[2024-12-13] MEDS: MIRTAZAPINE 15 MG TABLET PO SCH (21:12)
[2024-12-14 04:56] VITALS: BP 129/51; TEMP 98.7; O2SAT 98
[2024-12-14 06:37] LABS: ALBUMIN 1.7 g/dL (3.4-5.0); BILIRUBIN,DIRECT 5.6 mg/dL (0.0-0.2); BILIRUBIN,TOTAL 6.8 mg/dL (0.2-1.0); CREATININE 0.7 mg/dL (0.6-1.3); MAGNESIUM 1.4 mg/dL (1.8-2.4); POTASSIUM 3.3 mmol/L (3.5-5.1); TOTAL PROTEIN, SERUM 4.9 g/dL (6.4-8.2)
[2024-12-14 07:05] LABS: BASOPHILS # (AUTO) 0.1 K/UL (0.0-0.2); BASOPHILS % (AUTO) 0.7 % (0.0-2.0); DIFFERENTIAL COMMENT 0; EOSINOPHILS # (AUTO) 0.2 K/uL (0.0-0.7); EOSINOPHILS % (AUTO) 2.3 % (0.0-7.0); HEMATOCRIT 24.7 % (31.2-41.9); HEMOGLOBIN 8.4 g/dL (10.9-14.3); LYMPHOCYTES # (AUTO) 1.2 K/uL (0.8-4.8); LYMPHOCYTES % (AUTO) 17.1 % (20.5-51.5); MEAN CORPUSCULAR HEMOGLOBIN 32.4 uug (24.7-32.8); MEAN CORPUSCULAR HGB CONC 34 g/dL (32.3-35.6); MEAN CORPUSCULAR VOLUME 95.2 fL (75.5-95.3); MONOCYTES % (AUTO) 13.1 % (0.0-11.0); NEUTROPHILS # (AUTO) 4.8 K/uL (1.8-8.9); NEUTROPHILS % (AUTO) 66.8 % (38.5-71.5); PLATELET COUNT (AUTO) 184 K/uL (179-408); RED CELL DISTRIBUTION WIDTH 18.9 % (12.3-17.7); WHITE BLOOD COUNT (AUTO) 7.2 K/uL (3.8-11.8)
[2024-12-14] MEDS: MAGNESIUM SULFATE/D5W 100 ML IV SCH (10:07)
[2024-12-14] MEDS: POTASSIUM CHLORIDE 20 MEQ TAB.PRT.SR PO ONE (10:09)
[2024-12-14] MEDS ORDERED: PIPE3.379 IV (10:10)
[2024-12-14] MEDS ORDERED: FURO20TA4 PO (10:10)
[2024-12-14] MEDS ORDERED: PANT40TA49 PO (10:10)
[2024-12-14] MEDS ORDERED: ASCO500T21 PO (10:10)
[2024-12-14] MEDS ORDERED: MIRT-93 PO (10:10)
[2024-12-14] MEDS ORDERED: SPIR50TA PO (10:10)
[2024-12-14] MEDS ORDERED: MAGN400C PO (11:15)
[2024-12-14 11:23] VITALS: BP 97/50; TEMP 98.2; O2SAT 99
[2024-12-14] MEDS: MAGNESIUM OXIDE 400 MG TABLET PO ONE (11:53)
[2024-12-14 15:27] VITALS: BP 109/65; TEMP 98.2; O2SAT 94
[2024-12-14 17:00] VITALS: BP 105/54
== END 2024-12-14 18:18 | DRG 720 ==
LOC: ER 19:30 → TELE3 22:48 → MEDSURG3 12-10 10:25
PROVIDERS: ADMIT Nurse Practitioner Acute Care; ATTEND Nurse Practitioner Acute Care
PROC: 05HB33Z Insertion of Infusion Device into Right Basilic Vein, Percutaneous Approach (ICD-10-PCS; principal; 2024-12-12)
PROC: 05HC33Z Insertion of Infusion Device into Left Basilic Vein, Percutaneous Approach (ICD-10-PCS; 2024-12-14)
DX: A41.9 Sepsis, unspecified organism (principal); J69.0 Pneumonitis due to inhalation of food and vomit; L89.153 Pressure ulcer of sacral region, stage 3; E43 Unspecified severe protein-calorie malnutrition; E87.20 Acidosis, unspecified; E72.20 Disorder of urea cycle metabolism, unspecified; J18.9 Pneumonia, unspecified organism; D68.4 Acquired coagulation factor deficiency; E88.09 Other disorders of plasma-protein metabolism, not elsewhere classified; D63.8 Anemia in other chronic diseases classified elsewhere; K70.31 Alcoholic cirrhosis of liver with ascites; K76.6 Portal hypertension; R62.7 Adult failure to thrive; F10.10 Alcohol abuse, uncomplicated; Z68.33 Body mass index [BMI] 33.0-33.9, adult; R16.1 Splenomegaly, not elsewhere classified; I50.32 Chronic diastolic (congestive) heart failure; I48.0 Paroxysmal atrial fibrillation; J98.11 Atelectasis; K44.9 Diaphragmatic hernia without obstruction or gangrene; Z79.899 Other long term (current) drug therapy; Z87.19 Personal history of other diseases of the digestive system; I51.7 Cardiomegaly; K80.20 Calculus of gallbladder without cholecystitis without obstruction; K21.9 Gastro-esophageal reflux disease without esophagitis
CPT/HCPCS: 36415; 70450; 71045; 83605; 83735; 84100; 84484; 85025; 85730; 86850; 86900; 86901; 87040; 87086; A4606; A4663; A6209; A6213; C1758; G0378; G0480; J0696; J2543; J3370; J3371; J3475; J7040; J7050